=== PATIENT | male | born 1960 | race Caucasian/White ===

== ENCOUNTER → 2016-12-02 | Outpatient (REF) | payer OTHER | LOC: M SFHCPLAZ 11:19 | PROVIDERS: ATTEND Family Medicine | DX: E78.2 Mixed hyperlipidemia (principal); Z12.5 Encounter for screening for malignant neoplasm of prostate; E55.9 Vitamin D deficiency, unspecified ==

== ENCOUNTER → 2016-12-08 | Outpatient (CLI) | payer OTHER ==
--- NOTE | 2016-12-08 17:05 | REP ---
Clinical: Lower back pain. Technique: AP, lateral, bilateral oblique and coned-down views of the lumbosacral spine. Findings: Advanced multilevel degenerative changes include osteophytosis, endplate sclerosis/irregularity with disc space narrowing and hypertrophic facet changes. Subtle chronic compression deformity at L1 is suggested. No acute fracture / compression injury or subluxation identified. Impression: Advanced multilevel degenerative changes. If the patient remains symptomatic consider MRI for further investigation. Signed by John Robledo MD 12/08/2016 04:57 P
== END ==
LOC: M WUC 16:36
PROVIDERS: ATTEND Family Medicine
DX: M51.36 Other intervertebral disc degeneration, lumbar region (principal)

== ENCOUNTER → 2017-05-27 | Outpatient (CLI) | payer OTHER ==
[~2017-05-27] MED LIST: ACET-683 PO; ASPI81TA85 PO; ASTELIN; CALCTAB75 PO; DRIS50002 PO; FENO145T PO; FLON1SPR; HYDR25TAB PO; LISI-538 PO; PRAV40TA2 PO; QVAR1AER2 IN; SALI0.6523; VENTAER IN; VITA500T PO
[2017-05-27 13:31] LABS: ALBUMIN 4.1 GM/DL (3.2-5.2); ALBUMIN/GLOBULIN RATIO 1.41 (1.00-1.93); ALKALINE PHOSPHATASE 56 U/L (45-117); ALT/SGPT 17 U/L (12-78); ANION GAP 7 MEQ/L (8-16); AST/SGOT 20 U/L (15-37); BILIRUBIN,TOTAL 0.4 MG/DL (0.2-1.0); BLOOD UREA NITROGEN 24 MG/DL (7-18); CALCIUM LEVEL 9.6 MG/DL (8.5-10.1); CARBON DIOXIDE LEVEL 28 MEQ/L (21-32); CHLORIDE LEVEL 104 MEQ/L (98-107); CHOLESTEROL LEVEL 153 MG/DL (<200); CREATININE FOR GFR 1.06 MG/DL (0.70-1.30); GLOMERULAR FILTRATION RATE > 60.0 (>56); GLUCOSE, FASTING 94 MG/DL (70-105); SODIUM LEVEL 139 MEQ/L (136-145); TRIGLYCERIDES LEVEL 142 MG/DL (<150)
== END ==
LOC: M WUC 09:38
PROVIDERS: ATTEND Family Medicine
DX: E78.2 Mixed hyperlipidemia (principal); Z12.5 Encounter for screening for malignant neoplasm of prostate; E55.9 Vitamin D deficiency, unspecified

== ENCOUNTER → 2017-07-06 | Outpatient (CLI) | payer OTHER ==
--- NOTE | 2017-07-06 10:13 | REP ---
MAXILLOFACIAL CT WITHOUT CONTRAST: HISTORY: Chronic maxillary sinusitis. COMPARISON: 04/04/2008 A left [place] cell is present. Mild mucosal thickening is present in the left ethmoid sinus. Minimal mucosal thickening is present in the maxillary and right ethmoid sinuses. Retention cysts or polyps are present in the maxillary sinuses. The remaining sinuses are clear. Mucosal thickening involves the right osteomeatal unit. The left osteomeatal unit is patent. The middle and inferior nasal turbinates are partially paradoxical. 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 There is minimal deviation of the nasal septum to the left superiorly and to the right inferiorly. The cribriform plate, medial aragon of the orbits and optic canals are intact. The carotid canals form a segment of the posterolateral aragon of the sphenoid sinus. IMPRESSION: 1. Sinus mucosal thickening as described above. 2. Bilateral maxillary sinus retention cysts or polyps. Signed by Boom Benitez MD 07/06/2017 10:28 A
== END ==
LOC: M RAD 07:14
PROVIDERS: ATTEND Specialist
DX: J32.0 Chronic maxillary sinusitis (principal); J34.1 Cyst and mucocele of nose and nasal sinus

== ENCOUNTER 2017-09-19 07:46 | Day surgery (SDC) | payer OTHER ==
[~2017-09-19] VITALS: Ht 172.7 cm; Wt 93.4 kg
[~2017-09-19 07:46] MED LIST changes: -ACET-683 PO; -HYDR25TAB PO; -PRAV40TA2 PO
[2017-09-19] MEDS ORDERED: PRAV40TA2 PO (08:22)
[2017-09-19] MEDS ORDERED: HYDR25TAB PO (08:22)
[2017-09-19] MEDS ORDERED: ACET-683 PO (08:27)
[2017-09-19 08:45] LABS: ANION GAP 7 MEQ/L (8-16); BLOOD UREA NITROGEN 23 MG/DL (7-18); CALCIUM LEVEL 9.1 MG/DL (8.5-10.1); CARBON DIOXIDE LEVEL 32 MEQ/L (21-32); CHLORIDE LEVEL 101 MEQ/L (98-107); CREATININE FOR GFR 1.08 MG/DL (0.70-1.30); GLOMERULAR FILTRATION RATE > 60.0 (>56); GLUCOSE, FASTING 94 MG/DL (70-105); POTASSIUM SERUM 3.8 MEQ/L (3.5-5.1); SODIUM LEVEL 140 MEQ/L (136-145)
[2017-09-19] MEDS ORDERED: LR 1,000 ML IV SCH ×2 (08:45→13:00)
--- NOTE | 2017-09-19 08:46 | ECGEPIP ---
Stationary ECG Study [facility] Test Date: 2017-09-19 Pat Name: WENCESLAO BUTTS Department: Room: - Gender: M Bradder: : 1960 Requested By: ARIELLE MARCUS Order Number: [id number] Reading MD: Moy Forte Measurements Intervals [place] Rate: 67 P: 44 IA: 174 QRS: -26 QRSD: 122 T: -7 QT: 420 QTc: 446 Interpretive Statements Normal sinus rhythm Left axis deviation - Could not rule out prior IWMI Slow precordial R-wave progression with persistent S waves V5 and V6; body habitus versus pulmonary disease. No prior tracing. Clinical correlation advised Electronically Signed On 09-19-2017 8:46:12 EDT by Moy Forte
[2017-09-19] MEDS ORDERED: ROCURONIUM BROMIDE 50 MG/5 ML VIAL/SYRINGE As Ordered ONE (09:33)
[2017-09-19] MEDS ORDERED: PROPOFOL 200 MG/20 ML VIAL As Ordered ONE (09:33)
[2017-09-19] MEDS ORDERED: fentaNYL 250 MCG/5 ML INJECTION (J3010) As Ordered ONE (09:33)
[2017-09-19] MEDS ORDERED: dexameTHASONE 4 MG/ML 1ML VIAL (J1100) As Ordered ONE (09:33)
[2017-09-19] MEDS ORDERED: LIDOCAINE 2% INJ 100 MG/5 ML SDV (FOR ANES.) As Ordered ONE (09:33)
[2017-09-19] MEDS ORDERED: MIDAZOLAM INJ 2 MG/2 ML VIAL (J2250) As Ordered ONE (09:34)
[2017-09-19] MEDS ORDERED: EPINEPHrine INJ 1 MG/ML 1ML AMP As Ordered ONE ×2 (10:15→11:36)
[2017-09-19] MEDS ORDERED: LIDOCAINE W/EPINEPHRINE 1% 20ML VIAL As Ordered ONE (10:15)
[2017-09-19] MEDS ORDERED: OXYMETAZOLINE NASAL SPRAY (AFRIN) As Ordered ONE (10:15)
[2017-09-19] MEDS ORDERED: METHYLENE BLUE 0.5% (5MG/ML) 10 ML AMP (PROVAYBLUE)(Q9968 PER 1MG) As Ordered ONE (10:19)
[2017-09-19] MEDS ORDERED: SEVOFLURANE INHAL SOLN 250 ML BTL As Ordered ONE (10:21)
[2017-09-19] MEDS ORDERED: GLYCOPYRROLATE INJ 0.2 MG/ML 2 ML VIAL As Ordered ONE (11:32)
[2017-09-19] MEDS ORDERED: NEOSTIGMINE 10 MG/10 ML VIAL (J2710) As Ordered ONE (11:32)
[2017-09-19] MEDS ORDERED: ePHEDrine SULFATE 25 MG/5 ML(5MG/ML) SYRINGE As Ordered ONE (11:48)
[2017-09-19] MEDS ORDERED: ALBUTEROL SULFATE 2.5 MG/0.5 ML INH NEB SOLN As Ordered ONE (12:44)
[2017-09-19] MEDS ORDERED: ALBUTEROL SULFATE 2.5 MG/0.5 ML INH NEB SOLN INH ONE (13:00)
[2017-09-19] MEDS ORDERED: fentaNYL 100 MCG/2 ML INJECTION (J3010) IV PRN (13:00)
[2017-09-19] MEDS ORDERED: ONDANSETRON 4MG/2ML VIAL (J2405) IV PRN (13:00)
[2017-09-19] MEDS: PERCOCET 5MG/325MG TAB PO PRN ×2 (13:05→14:08)
[2017-09-19 15:00] VITALS: BP 138/65
--- NOTE | 2017-09-21 08:22 | RO ---
DATE OF PROCEDURE: 09/19/2017 PREPROCEDURE DIAGNOSIS: Deviated septum. POSTPROCEDURE DIAGNOSIS: Deviated septum. PROCEDURE: Septoplasty and bilateral total endoscopic ethmoidectomy and maxillary antrostomy. SURGEON: Dr. Michael Roberts. 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 INDICATION: 57-year-old who presents with a lifelong history of nasal obstruction, congestion, and recurrent sinusitis. CT scanning demonstrated bilateral large andrez bullosa of the middle turbinates, which were obstructing sinus ostia. In addition, he had a significant septal deviation to the right nasal cavity. DESCRIPTION OF PROCEDURE: Satisfactory general endotracheal anesthesia administered pharyngeal pathway, his nose was prepared for surgery by placing cotton-soaked pledgets with Afrin solution to the nasal cavity bilaterally, 1% Xylocaine with 1:100,000 epinephrine used to inject the nasal septum. A [place] incision was made on the left side of the nose. A mucoperichondrial flap and envelope was created on the left side of the nasal septum and carried down to the junction of the bony and cartilaginous septum. This was then with an elevator, and an envelope was then created on the right side of the septum. A [place] scissors was used to make a cut high in the perpendicular plate in the midportion of the vomer, and a central segment of the bony septum was resected. Next, with the round knife on the [place] elevator, a strip of cartilage was resected from the floor of the nose, mobilizing the quadrilateral cartilage and creating a swinging door. Then, a central segment of cartilaginous septum was resected, preserving a 1 cm dorsal and caudal strut. Double-action rongeur was used to take down deflected portions of the perpendicular plate, as well. Finally, the maxillary crest spur was taken down after elevating mucoperiosteum off both sides of it with a chisel. A segment of the resected cartilage was morselized and placed back into the septal envelope. The incision was closed using an interrupted #5-0 chromic suture. Then, a #4-0 plain suture was placed in a [id number] fashion through the two leaves of mucoperichondrium to appose them. Completing the septum surgery, endoscopic surgery was begun after adrenaline pledgets were placed in the middle meatus for 5 minutes. With the 0 degree telescope and the microdebrider as the primary instrument, the left side was operated on first. The middle turbinate, which was pneumatized was injected with the lidocaine as well as the lateral nasal wall. Using the microdebrider, the lateral lamella of the pneumatized middle turbinate was resected away giving adequate exposure of the middle meatus. The uncinate process was shaved down. Then the ethmoidal bulla, although quite small was entered and resected. The grand lamella was entered posteriorly and the posterior ethmoid cells entered. There was some polypoid-like tissue encountered during the dissection. Working then posterior to enter the lamella, bone removed enlarging the ethmoid section following the lamina papyracea. Superiorly around the skull base, the remnant uncinate process was opened, the superior ethmoid cell was opened. Finally, the natural maxillary sinus ostia was identified. It was cannulated and it was opened widely using a combination of [place] biting and upbiting forceps using the microdebrider to round it out. Adrenaline pledgets were placed in this side and an identical procedure including resection of the pneumatized middle turbinate was done on the right side. Completing this surgery, adrenaline pledgets were placed. When these were removed, there was no significant bleeding. Nasal floor packing were placed in each side of the nose, the pharyngeal packing removed and the throat suctioned. The patient was awakened, extubate and sent to the recovery room in satisfactory condition. He will be discharged home on Percocet for pain, doxycycline 100 mg twice a day. We will see him back in the office in 2 days.
== END 2017-09-19 15:48 | disposition home or self-care (01) ==
LOC: M SDC 07:46
PROVIDERS: ATTEND Specialist
DX: J34.2 Deviated nasal septum (principal); J32.9 Chronic sinusitis, unspecified; I10 Essential (primary) hypertension; E78.00 Pure hypercholesterolemia, unspecified; R01.1 Cardiac murmur, unspecified; J45.909 Unspecified asthma, uncomplicated; K44.9 Diaphragmatic hernia without obstruction or gangrene; K21.9 Gastro-esophageal reflux disease without esophagitis; E78.5 Hyperlipidemia, unspecified; M12.9 Arthropathy, unspecified; Z88.0 Allergy status to penicillin; Z88.5 Allergy status to narcotic agent; Z88.8 Allergy status to other drugs, medicaments and biological substances; Z91.048 Other nonmedicinal substance allergy status; Z91.040 Latex allergy status; Z91.012 Allergy to eggs; Z79.899 Other long term (current) drug therapy
CPT/HCPCS: 30520; 31255; 31256; 36415; 80048; 88300; 88304; 88305; 93005; J1100; J2250; J2710; J3010; Q9968

== ENCOUNTER → 2018-03-16 | Outpatient (CLI) | payer OTHER | LOC: M WUC 14:52 | DX: S90.121A Contusion of right lesser toe(s) without damage to nail, initial encounter (principal); W18.30XA Fall on same level, unspecified, initial encounter; Y92.009 Unspecified place in unspecified non-institutional (private) residence as the place of occurrence of the external cause ==

== ENCOUNTER → 2018-05-12 | Outpatient (CLI) | payer OTHER ==
[2018-05-12 19:05] LABS: HEMATOCRIT 39.2 % (42.0-52.0); HEMOGLOBIN 12.6 g/dl (13.5-17.5); MEAN CORPUSCULAR HEMOGLOBIN 26.6 pg (27.0-33.0); MEAN CORPUSCULAR HGB CONC 32.1 g/dl (32.0-36.5); MEAN CORPUSCULAR VOLUME 82.9 fl (80.0-96.0); PLATELET COUNT, AUTOMATED 318 10^3/uL (150-450); RED BLOOD COUNT 4.73 10^6/uL (4.30-6.10); RED CELL DISTRIBUTION WIDTH 14.9 % (11.5-14.5); WHITE BLOOD COUNT 5.7 10^3/uL (4.0-10.0)
[2018-05-12 19:17] LABS: ALBUMIN 4.1 GM/DL (3.2-5.2); ALBUMIN/GLOBULIN RATIO 1.52 (1.00-1.93); ALKALINE PHOSPHATASE 53 U/L (45-117); ALT/SGPT 17 U/L (12-78); ANION GAP 7 MEQ/L (8-16); AST/SGOT 20 U/L (7-37); BILIRUBIN,TOTAL 0.4 MG/DL (0.2-1.0); BLOOD UREA NITROGEN 26 MG/DL (7-18); CALCIUM LEVEL 9.5 MG/DL (8.5-10.1); CARBON DIOXIDE LEVEL 32 MEQ/L (21-32); CHLORIDE LEVEL 104 MEQ/L (98-107); CHOLESTEROL LEVEL 146 MG/DL (<200); CREATININE FOR GFR 1.18 MG/DL (0.70-1.30); GLOMERULAR FILTRATION RATE > 60.0 (>56); GLUCOSE, FASTING 87 MG/DL (70-100); HDL CHOLESTEROL 50 MG/DL (>40); LDL CHOLESTEROL 67.2 MG/DL (<100); NON-HDL-C 96 MG/DL; POTASSIUM SERUM 4.2 MEQ/L (3.5-5.1); PSA SCREENING 0.22 NG/ML (< 4.0); SODIUM LEVEL 143 MEQ/L (136-145); TOTAL PROTEIN 6.8 GM/DL (6.4-8.2); TRIGLYCERIDES LEVEL 144 MG/DL (<150)
[2018-05-12 19:19] LABS: ESTIMATED AVERAGE GLUCOSE 123 MG/DL (60-110); HEMOGLOBIN A1c 5.9 %
[2018-05-14 10:10] LABS: TOTAL 25(OH) VITAMIN D 25.2 NG/ML (30.0-100.0)
== END ==
LOC: M WUC 09:25
DX: J45.998 Other asthma (principal); I10 Essential (primary) hypertension; R73.03 Prediabetes; E78.2 Mixed hyperlipidemia; Z12.5 Encounter for screening for malignant neoplasm of prostate; E55.9 Vitamin D deficiency, unspecified
CPT/HCPCS: 80053

== ENCOUNTER → 2018-10-27 | Outpatient (CLI) | payer OTHER ==
[2018-10-27 11:14] LABS: HEMATOCRIT 40.3 % (42.0-52.0); MEAN CORPUSCULAR HEMOGLOBIN 26.5 pg (27.0-33.0); MEAN CORPUSCULAR HGB CONC 32.3 g/dl (32.0-36.5); MEAN CORPUSCULAR VOLUME 82.1 fl (80.0-96.0); PLATELET COUNT, AUTOMATED 317 10^3/uL (150-450); RED BLOOD COUNT 4.91 10^6/uL (4.30-6.10); RED CELL DISTRIBUTION WIDTH 13.8 % (11.5-14.5); WHITE BLOOD COUNT 8.6 10^3/uL (4.0-10.0)
[2018-10-27 11:30] LABS: ESTIMATED AVERAGE GLUCOSE 128 MG/DL (60-110); HEMOGLOBIN A1c 6.1 %
[2018-10-27 11:42] LABS: ALBUMIN/GLOBULIN RATIO 1.54 (1.00-1.93); ALKALINE PHOSPHATASE 47 U/L (45-117); ALT/SGPT 13 U/L (12-78); ANION GAP 10 MEQ/L (8-16); AST/SGOT 12 U/L (7-37); BILIRUBIN,TOTAL 0.5 MG/DL (0.2-1.0); BLOOD UREA NITROGEN 30 MG/DL (7-18); CALCIUM LEVEL 9.4 MG/DL (8.5-10.1); CARBON DIOXIDE LEVEL 27 MEQ/L (21-32); CHLORIDE LEVEL 104 MEQ/L (98-107); CHOLESTEROL LEVEL 149 MG/DL (<200); CHOLESTEROL RISK RATIO 2.921 (<5); CREATININE FOR GFR 1.05 MG/DL (0.70-1.30); GLOMERULAR FILTRATION RATE > 60.0 (>56); GLUCOSE, FASTING 87 MG/DL (70-100); HDL CHOLESTEROL 51 MG/DL (>40); LDL CHOLESTEROL 71 MG/DL (<100); NON-HDL-C 98 MG/DL; POTASSIUM SERUM 4.1 MEQ/L (3.5-5.1); PSA SCREENING 0.2 NG/ML (< 4.0); SODIUM LEVEL 141 MEQ/L (136-145); TOTAL PROTEIN 6.6 GM/DL (6.4-8.2); TRIGLYCERIDES LEVEL 133 MG/DL (<150)
== END ==
LOC: M WUC 09:04
DX: Z12.5 Encounter for screening for malignant neoplasm of prostate (principal); J45.998 Other asthma; I10 Essential (primary) hypertension; R73.03 Prediabetes; R78.2 Finding of cocaine in blood; E55.9 Vitamin D deficiency, unspecified
CPT/HCPCS: 80053

== ENCOUNTER → 2019-02-25 | Outpatient (CLI) | payer OTHER ==
[~2019-02-25] MED LIST changes: +ACET-683 PO; -DRIS50002 PO; +DRIS50003 PO; -FENO145T PO; +FENO145T13 PO; +HYDR25TAB PO; +PRAV40TA2 PO; -QVAR1AER2 IN; +QVAR80AE10 IN; -SALI0.6523; +SALI0.6528
--- NOTE | 2019-02-25 15:07 | REP ---
Clinical: Pain with recent trauma. Technique: Internal rotation, external rotation, and Y view of the left shoulder. Findings: Generalized age-related changes are appreciated including subtle cortical irregularity at the acromioclavicular joint. Glenohumeral joint is intact and relatively normal. No acute fracture or dislocation. Subacromial space measures 9 mm on external rotation view. No periarticular calcifications or loose bodies are identified. Impression: Essentially normal age appropriate left shoulder radiographs. No acute fracture or dislocation. Electronically Signed by John Robledo MD 02/25/2019 02:58 P
== END ==
LOC: M RAD 14:38
PROVIDERS: ATTEND Physician Assistant
DX: S46.912A Strain of unspecified muscle, fascia and tendon at shoulder and upper arm level, left arm, initial encounter (principal); X58.XXXA Exposure to other specified factors, initial encounter; Y92.89 Other specified places as the place of occurrence of the external cause

== ENCOUNTER → 2019-05-03 | Outpatient (REF) | payer OTHER ==
[2019-05-03 13:55] LABS: HEMATOCRIT 43.5 % (42.0-52.0); HEMOGLOBIN 14.3 g/dl (13.5-17.5); MEAN CORPUSCULAR HEMOGLOBIN 26.9 pg (27.0-33.0); MEAN CORPUSCULAR HGB CONC 32.9 g/dl (32.0-36.5); MEAN CORPUSCULAR VOLUME 81.8 fl (80.0-96.0); PLATELET COUNT, AUTOMATED 332 10^3/uL (150-450); RED BLOOD COUNT 5.32 10^6/uL (4.30-6.10); WHITE BLOOD COUNT 6.3 10^3/uL (4.0-10.0)
[2019-05-03 14:11] LABS: ALBUMIN 4.3 GM/DL (3.2-5.2); ALT/SGPT 17 U/L (12-78); BILIRUBIN,TOTAL 0.5 MG/DL (0.2-1.0); BLOOD UREA NITROGEN 27 MG/DL (7-18); CALCIUM LEVEL 10.1 MG/DL (8.5-10.1); CARBON DIOXIDE LEVEL 27 MEQ/L (21-32); CHLORIDE LEVEL 103 MEQ/L (98-107); CHOLESTEROL LEVEL 169 MG/DL (<200); CREATININE FOR GFR 1.06 MG/DL (0.70-1.30); GLOMERULAR FILTRATION RATE > 60.0 (>56); GLUCOSE, FASTING 78 MG/DL (70-100); HDL CHOLESTEROL 52 MG/DL (>40); LDL CHOLESTEROL 82 MG/DL (<100); NON-HDL-C 117 MG/DL; POTASSIUM SERUM 4.3 MEQ/L (3.5-5.1); SODIUM LEVEL 140 MEQ/L (136-145); TOTAL PROTEIN 7.5 GM/DL (6.4-8.2); TRIGLYCERIDES LEVEL 173 MG/DL (<150)
[2019-05-03 14:17] LABS: TOTAL 25(OH) VITAMIN D 31.4 NG/ML (30.0-100.0)
[2019-05-03 14:41] LABS: HEMOGLOBIN A1c 6.2 %
== END ==
LOC: M SFHCPLAZ 10:46
PROVIDERS: ATTEND Family Medicine
DX: J45.998 Other asthma (principal); I10 Essential (primary) hypertension; R73.03 Prediabetes; E78.2 Mixed hyperlipidemia; Z12.5 Encounter for screening for malignant neoplasm of prostate; E55.9 Vitamin D deficiency, unspecified
CPT/HCPCS: 36415; 80053; 80061; 82306; 83036; 85027; G0103

== ENCOUNTER → 2019-07-05 | Outpatient (REF) | payer OTHER ==
[2019-07-05 19:36] LABS: FREE T4 0.89 NG/DL (0.76-1.46); THYROID STIMULATING HORMONE 2.5 uIU/ML (0.358-3.740)
== END ==
LOC: M SFHCADAM 16:12
PROVIDERS: ATTEND Family Medicine
DX: G20 Parkinson's disease (principal)

== ENCOUNTER → 2019-08-03 | Outpatient (CLI) | payer OTHER ==
--- NOTE | 2019-08-03 10:22 | REP ---
Clinical: Trauma. Technique: AP, lateral, bilateral oblique views right fifth digit . Findings: The osseous structures and joint spaces are intact and normal. There is no evidence for acute fracture or dislocation. Surrounding soft tissues are unremarkable. No subcutaneous emphysema or radiodense foreign body. Impression: No acute fracture or dislocation. Electronically Signed by John Robledo MD 08/03/2019 10:14 A
== END ==
LOC: M WUC 09:50
PROVIDERS: ATTEND Physician Assistant
DX: S60.051A Contusion of right little finger without damage to nail, initial encounter (principal); X58.XXXA Exposure to other specified factors, initial encounter; Y92.9 Unspecified place or not applicable

== ENCOUNTER → 2019-09-24 | Outpatient (CLI) | payer OTHER ==
[~2019-09-24] MED LIST changes: +ALBU83IN INH; +ALLE180T33 PO; +CALC600T7 PO; +GABA-1171 PO; +IBUP200C25 PO; +LIDO5CRE6 EX; +MULTCAP PO; +SYMB16INH INH; +VENTAER INH
--- NOTE | 2019-09-24 15:10 | REP ---
Clinical: Pain. Strain . Comparison: 10/20/2009 . Technique: PA and lateral. Findings: The mediastinum and cardiac silhouette are normal. The lung morel are clear and without acute consolidation, effusion, or pneumothorax. The skeletal structures are intact and normal. Impression: 1. No acute cardiopulmonary process. Electronically Signed by John Robledo MD 09/24/2019 03:01 P
[2019-09-24 15:14] LABS: BLOOD UREA NITROGEN 28 MG/DL (7-18); CALCIUM LEVEL 9.8 MG/DL (8.5-10.1); CARBON DIOXIDE LEVEL 30 MEQ/L (21-32); CHLORIDE LEVEL 105 MEQ/L (98-107); CREATININE FOR GFR 0.95 MG/DL (0.70-1.30); GLOMERULAR FILTRATION RATE > 60.0 (>56); GLUCOSE, FASTING 95 MG/DL (70-100); POTASSIUM SERUM 3.9 MEQ/L (3.5-5.1); SODIUM LEVEL 140 MEQ/L (136-145)
--- NOTE | 2019-09-24 21:57 | ECGEPIP ---
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
== END ==
LOC: M LAB 14:20
PROVIDERS: ATTEND Orthopaedic Surgery
DX: Z01.810 Encounter for preprocedural cardiovascular examination (principal); S46.812D Strain of other muscles, fascia and tendons at shoulder and upper arm level, left arm, subsequent encounter; X58.XXXD Exposure to other specified factors, subsequent encounter; R94.31 Abnormal electrocardiogram [ECG] [EKG]

== ENCOUNTER 2019-10-29 05:47 | Day surgery (SDC) | payer OTHER ==
[~2019-10-29] VITALS: Ht 167.6 cm; Wt 100.6 kg
[~2019-10-29 05:47] MED LIST changes: +DOXY100C PO
[2019-10-29] MEDS ORDERED: dexameTHASONE 10 MG/1 ML VIAL PRES.FREE (J1100) ONE (05:48)
[2019-10-29] MEDS ORDERED: EPINEPHrine INJ 1 MG/ML 1ML AMP ONE (05:48)
[2019-10-29] MEDS ORDERED: ROPIvacaine 0.5% 30 ML INJECTION (J2795 PER 1MG) ONE (05:48)
[2019-10-29] MEDS ORDERED: LR 1,000 ML IV ONE (06:00)
[2019-10-29] MEDS ORDERED: GEMF600T5 PO (06:27)
[2019-10-29] MEDS ORDERED: ATOR1TAB21 PO (06:27)
[2019-10-29] MEDS ORDERED: LIDOCAINE 1% SDV INJ 30 ML VIAL As Ordered ONE (06:56)
[2019-10-29] MEDS ORDERED: EPINEPHrine 1MG/ML INJ 30ML MD-VIAL As Ordered ONE (06:56)
[2019-10-29] MEDS ORDERED: fentaNYL 250 MCG/5 ML INJECTION (J3010) As Ordered ONE (07:07)
[2019-10-29] MEDS ORDERED: dexameTHASONE 4 MG/ML 1ML VIAL (J1100) As Ordered ONE (07:08)
[2019-10-29] MEDS ORDERED: ONDANSETRON 4MG/2ML VIAL (J2405) As Ordered ONE (07:08)
[2019-10-29] MEDS ORDERED: KETOROLAC 60 MG/2 ML VIAL (J1885) As Ordered ONE (07:08)
[2019-10-29] MEDS ORDERED: LIDOCAINE 2% INJ 100 MG/5 ML SDV (FOR ANES.) As Ordered ONE (07:08)
[2019-10-29] MEDS ORDERED: PROPOFOL 200 MG/20 ML VIAL As Ordered ONE ×2 (07:08→09:39)
[2019-10-29] MEDS ORDERED: MIDAZOLAM INJ 2 MG/2 ML VIAL (J2250) As Ordered ONE (07:08)
[2019-10-29] MEDS ORDERED: ROCURONIUM BROMIDE 50 MG/5 ML VIAL As Ordered ONE (07:08)
[2019-10-29] MEDS ORDERED: ceFAZolin SOD 2 GM in IV 1 EA IV ONE (07:30)
[2019-10-29] MEDS ORDERED: MIDAZOLAM INJ 2 MG/2 ML VIAL (J2250) IV ONE (07:45)
[2019-10-29] MEDS ORDERED: fentaNYL 100 MCG/2 ML INJECTION (J3010) IV ONE (07:45)
[2019-10-29] MEDS ORDERED: ACETAMINOPHEN 1000MG 100ML IV BTL (OFIRMEV) (J0131 PER 10MG) As Ordered ONE (07:58)
[2019-10-29] MEDS ORDERED: PHENYLephrine HCL 500 MCG/5 ML (100MCG/ML) SYRINGE (J2370) As Ordered ONE (08:06)
[2019-10-29] MEDS ORDERED: ePHEDrine SULFATE 25 MG/5 ML(5MG/ML) SYRINGE As Ordered ONE ×2 (08:06→08:28)
[2019-10-29] MEDS ORDERED: SUGAMMADEX SODIUM 500 MG/5 ML VIAL (BRIDION) As Ordered ONE (08:19)
[2019-10-29] MEDS ORDERED: LR 1,000 ML IV SCH (10:15)
[2019-10-29] MEDS ORDERED: ONDANSETRON 4MG/2ML VIAL (J2405) IV PRN (10:15)
[2019-10-29] MEDS ORDERED: fentaNYL 100 MCG/2 ML INJECTION (J3010) IV PRN (10:15)
[2019-10-29] MEDS ORDERED: oxyCODONE 5MG TAB PO PRN (10:15)
--- NOTE | 2019-10-29 10:40 | RO ---
DATE OF PROCEDURE: 10/29/2019 PREOPERATIVE DIAGNOSES: 1. Left shoulder posterior labral tear. 2. Left shoulder impingement. 3. Left shoulder AC joint arthritis. POSTOPERATIVE DIAGNOSES: 1. Left shoulder posterior labral tear. 2. Left shoulder glenohumeral chondromalacia. 3. Left shoulder anterior and superior labral tear. 4. Left shoulder impingement. 5. Left shoulder acromioclavicular joint arthritis. 6. Left shoulder capsulitis. PROCEDURES: 1. Left shoulder manipulation under anesthesia. 2. Left shoulder arthroscopic posterior labral repair. 3. Left shoulder arthroscopic superior and anterior labral debridement. 4. Left shoulder arthroscopic chondroplasty of the humeral head and glenoid. 5. Left shoulder arthroscopic subacromial decompression including acromioplasty. 6. Left shoulder arthroscopic distal clavicle excision. IMPLANTS: Arthrex 2.9 mm PushLock anchors times three with labral tape, closure nylon. PROCEDURE: Patient identified in preoperative holding area and the left shoulder was marked by myself. He had an interscalene nerve block by anesthesia. He was brought to the operating room, placed supine on a well-padded OR table. General anesthesia was induced. He received appropriate IV antibiotics within 1 hour of incision. Preliminary time-out performed per hospital protocol. Exam under anesthesia revealed 150 degrees of passive forward flexion, 80 of external rotation with arm at his side, grade 2 plus posterior load and shift, grade 1 anterior load and shift. I then performed a gentle manipulation under anesthesia applying steady yet gentle passive forward flexion. One small audible pop was heard and then also felt consistent with a partial release. He now had 170 degrees of forward flexion. The patient was then placed into the right side down lateral decubitus position with an axillary roll and all bony prominences were well padded. Bilateral Venodyne boots for deep vein thrombosis (DVT) prophylaxis. The left arm was placed into the Arthrex star sleeve lateral decubitus traction metz with 10 pounds of traction. The left shoulder was then prepped and draped in normal sterile fashion with Chloraprep. Prior to incision, a time-out was performed per hospital protocol. Lamonte Baez was present the entire procedure and participated in all essential portions of the procedure. This included patient positioning and draping, holding arthroscope, retrieving sutures arthroscopically, assisting with loading sutures through the PushLock anchors, providing axial traction and manipulation of the shoulder to assist with drilling and suture passage and performed the wound closure, applying the dressing and sling. Standard posterior viewing portal was made with 11-blade, 30 degrees arthroscope was introduced into the joint. Diagnostic arthroscopy revealed grade 1 to 2 chondromalacia in the glenoid, primarily grade 1 in the humeral head, one area of grade 2 posteriorly. There was a larger bare area than typical in the humeral head that almost appeared to be a shallow Hill-Sachs. Evaluation will labrum revealed traumatic tearing of the posterior labrum. There was a type 1 superior labral tear. There was some fraying extending up into the long head of the biceps. There were no unstable anterior labral tears. Negative drive-through sign. The articular surface of the rotator cuff was intact. The subscapularis was intact and there was no lift off doing the posterior lever push maneuver. An anterior working portal was established in the rotator interval just off the subscapularis. On probing the posterior labrum there was an unstable tear. There was actually some exposed raw bone consistent with a traumatic injury. The biceps labral anchor was probed, found to be stable. The shaver was used to perform a debridement of the anterior and superior labrum. A chondroplasty of humeral head and glenoid with the shaver. I then placed a second cannula high in the rotator interval just anterior to the biceps. I then created an accessory posterolateral portal to give a better angle for drilling into the posterior glenoid and a third cannula placed. At this point, it is clear the posterior labral repair was indicated. A hooked radiofrequency cautery was used to develop the plane between labrum and glenoid. Labral elevators were then used to the anterior portal to subperiosteally dissect and mobilize the tissue. I then used a suture lasso to shuttle nitinol wire and then labral tape through the posterior inferior labrum and capsule. This was loaded through 2.9 mm PushLock anchor. The appropriate drill was used to create a socket in the post inferior glenoid, anchor was docked and then inserted by hand, then malleted with excellent fixation. Those same steps were repeated with suture lasso used to shuttle nitinol wire and labral tape through capsule labrum in an inferior to superior direction resulting in a capsular shift. A total of three PushLock anchors were placed with excellent fixation. The repair was then probed and found to be secure. This nicely restored the posterior bumper which had been lost from his traumatic injury. The arthroscope was placed in the subacromial space where there was moderate bursitis. Lateral working portal was created and a bursectomy performed with shaver and cautery. There was low grade fraying of the bursal surface of the supraspinatus, no indication for debridement. The acromion was then skeletonize the CA ligament partially released. There was a moderate size subacromial spur so an acromioplasty was performed with the bur turning this into a type 1 morphology. Attention was then turned to the distal clavicle where there was bone on bone contact. A bur was used through the anterior portal to perform a distal clavicle excision and removing approximately 5-6 mm of bone. The arthroscope was intermittently placed through the anterior portal to ensure no posterior-superior bone remained. Shoulder was irrigated and drained. Portals closed with nylon suture. Bulky sterile dressing applied. The patient was then placed into his ARC 2.0 sling in the gunslinger position. At the time of this dictation, the patient was about to be extubated.
[2019-10-29 13:10] VITALS: BP 120/76
== END 2019-10-29 14:15 | disposition home or self-care (01) ==
LOC: M SDC 05:47
PROVIDERS: ATTEND Orthopaedic Surgery
DX: M94.212 Chondromalacia, left shoulder (principal); M75.02 Adhesive capsulitis of left shoulder; M19.012 Primary osteoarthritis, left shoulder; M75.42 Impingement syndrome of left shoulder; I10 Essential (primary) hypertension; E78.5 Hyperlipidemia, unspecified; I73.9 Peripheral vascular disease, unspecified; K21.9 Gastro-esophageal reflux disease without esophagitis; K44.9 Diaphragmatic hernia without obstruction or gangrene; J45.909 Unspecified asthma, uncomplicated; Z79.82 Long term (current) use of aspirin; Z79.899 Other long term (current) drug therapy; Z91.040 Latex allergy status; Z88.0 Allergy status to penicillin; Z88.5 Allergy status to narcotic agent; Z88.8 Allergy status to other drugs, medicaments and biological substances
CPT/HCPCS: 29807; 29823; 29824; 29826; 64415; C1713; J0131; J0690; J1100; J1885; J2250; J2370; J2405; J2795; J3010

== ENCOUNTER → 2019-12-02 | Outpatient (CLI) | payer OTHER ==
[~2019-12-02] MED LIST changes: +ATOR1TAB21 PO; +GEMF600T5 PO
--- NOTE | 2019-12-02 14:02 | REP ---
Digital diagnostic bilateral mammography with CAD and focused left breast sonography: History: Palpable lump 3 o'clock left breast. Present since February 2019. Becoming tender. Mammographic findings: A skin marker is affixed to the skin of the left breast projecting in the upper outer quadrant. Routine views of both breasts are obtained. Breast parenchyma is normal and fat replaced mammographically. No mass is seen at the site of the palpable lump or elsewhere. No architectural distortion or microcalcification is seen. No worrisome skin change is seen. Sonographic findings: The left breast is scanned in the area of the palpable lump at 3 o'clock, scanning is performed from 2 o'clock to 4 o'clock. Normal subcutaneous tissue is seen. No cyst or mass is observed. No acoustic shadowing is seen. Impression: BIRADS 1: BI-RADS/ACR category 1 mammogram. Negative Mammogram. BIRADS category 1 negative mammographic and sonographic findings. Clinical followup is recommended. This mammogram was interpreted with the aid of an FDA-approved computer-aided detection system. The patient states he had a clinical breast exam in November 2019. The patient letter being requested is male patient letter M2. Electronically Signed by Jhonathan Klein MD 12/02/2019 02:56 P
== END ==
LOC: M RAD 09:55
PROVIDERS: ATTEND Family Medicine
DX: N63.20 Unspecified lump in the left breast, unspecified quadrant (principal)

== ENCOUNTER → 2020-02-20 | Outpatient (CLI) | payer OTHER ==
[~2020-02-20] MED LIST changes: -FENO145T13 PO; +FENO145T7 PO
[2020-02-20 09:25] LABS: HEMATOCRIT 40.7 % (42.0-52.0); HEMOGLOBIN 12.9 g/dl (13.5-17.5); MEAN CORPUSCULAR HEMOGLOBIN 26.3 pg (27.0-33.0); MEAN CORPUSCULAR HGB CONC 31.7 g/dl (32.0-36.5); MEAN CORPUSCULAR VOLUME 82.9 fl (80.0-96.0); PLATELET COUNT, AUTOMATED 379 10^3/uL (150-450); RED BLOOD COUNT 4.91 10^6/uL (4.30-6.10); WHITE BLOOD COUNT 9.7 10^3/uL (4.0-10.0)
[2020-02-20 10:03] LABS: HEMOGLOBIN A1c 6.3 %
[2020-02-20 10:43] LABS: ALBUMIN 4.3 GM/DL (3.2-5.2); ALT/SGPT 14 U/L (12-78); BILIRUBIN,TOTAL 0.3 MG/DL (0.2-1.0); BLOOD UREA NITROGEN 29 MG/DL (7-18); CALCIUM LEVEL 10.1 MG/DL (8.5-10.1); CARBON DIOXIDE LEVEL 28 MEQ/L (21-32); CHLORIDE LEVEL 101 MEQ/L (98-107); CHOLESTEROL LEVEL 180 MG/DL (<200); CHOLESTEROL RISK RATIO 3.214 (<5); CREATININE FOR GFR 0.95 MG/DL (0.70-1.30); FREE T4 0.91 NG/DL (0.76-1.46); GLOMERULAR FILTRATION RATE > 60.0 (>56); GLUCOSE, FASTING 103 MG/DL (70-100); HDL CHOLESTEROL 56 MG/DL (>40); LDL CHOLESTEROL 108 MG/DL (<100); NON-HDL-C 124 MG/DL; POTASSIUM SERUM 4.1 MEQ/L (3.5-5.1); SODIUM LEVEL 138 MEQ/L (136-145); TOTAL 25(OH) VITAMIN D 49.7 NG/ML (30.0-100.0); TOTAL PROTEIN 7.7 GM/DL (6.4-8.2); TRIGLYCERIDES LEVEL 82 MG/DL (<150)
== END ==
LOC: M WUC 08:23
PROVIDERS: ATTEND Family Medicine
DX: E55.9 Vitamin D deficiency, unspecified (principal); G25.0 Essential tremor; R73.03 Prediabetes; E78.2 Mixed hyperlipidemia; I10 Essential (primary) hypertension; J45.998 Other asthma

== ENCOUNTER → 2020-08-26 | Outpatient (CLI) | payer OTHER, MEDICAID ==
[~2020-08-26] MED LIST changes: -ASPI81TA85 PO; +ASPI81TA86 PO; +CALC-212 PO; -CALC600T7 PO; +VITA-243 PO; -VITA500T PO
[2020-08-26 12:58] LABS: BASO % 0.3 % (0.0-1.0); EOS # 0.2 10^3/uL (0.0-0.5); HEMATOCRIT 39.5 % (42.0-52.0); HEMOGLOBIN 12.6 g/dl (13.5-17.5); LYMPH # 1.4 10^3/uL (1.5-5.0); LYMPH % 23.2 % (24.0-44.0); MEAN CORPUSCULAR HEMOGLOBIN 26.6 pg (27.0-33.0); MEAN CORPUSCULAR HGB CONC 31.9 g/dl (32.0-36.5); MEAN CORPUSCULAR VOLUME 83.3 fl (80.0-96.0); MONO # 0.8 10^3/uL (0.0-0.8); MONO % 12.9 % (0.0-5.0); NEUTROPHILS # 3.7 10^3/uL (1.5-8.5); NEUTROPHILS % 60.3 % (36.0-66.0); PLATELET COUNT, AUTOMATED 305 10^3/uL (150-450); RED BLOOD COUNT 4.74 10^6/uL (4.30-6.10); WHITE BLOOD COUNT 6.1 10^3/uL (4.0-10.0)
[2020-08-26 13:16] LABS: ERYTHROCYTE SEDIMENTATION RATE 12 mm/hr (0-20); HEMOGLOBIN A1c 5.8 %
[2020-08-26 15:40] LABS: BLOOD UREA NITROGEN 26 MG/DL (7-18); GLUCOSE, FASTING 90 MG/DL (70-100); POTASSIUM SERUM 3.7 MEQ/L (3.5-5.1); SODIUM LEVEL 140 MEQ/L (136-145)
[2020-08-26 15:41] LABS: ALT/SGPT 14 IU/L (0-32); BILIRUBIN,TOTAL 0.4 MG/DL (0.2-1.0); CALCIUM LEVEL 9.3 MG/DL (8.5-10.1); CARBON DIOXIDE LEVEL 30 mmol/L (20-29); CHLORIDE LEVEL 105 MEQ/L (98-107); RHEUMATOID FACTOR QUANT < 10.0 IU/ML (<15.0)
[2020-08-26 15:58] LABS: CREATININE FOR GFR 1.01 MG/DL (0.70-1.30); GLOMERULAR FILTRATION RATE > 60.0 (>56); TOTAL PROTEIN 6.9 GM/DL (6.4-8.2)
[2020-08-27 07:29] LABS: TOTAL PROTEIN 6.9 GM/DL (6.4-8.2)
[2020-08-27 11:35] LABS: ALBUMIN 4.29 GM/DL (3.29-5.55); ALBUMIN % 62.2 % (55.8-66.1); ALPHA-1-GLOBULIN % 4.3 % (2.9-4.9); ALPHA-2-GLOBULINS 0.75 GM/DL (0.42-0.99); ALPHA-2-GLOBULINS % 10.9 % (7.1-11.8); BETA-1-GLOBULINS 0.49 GM/DL (0.28-0.60); BETA-1-GLOBULINS % 7.1 % (4.7-7.2); BETA-2-GLOBULINS 0.33 GM/DL (0.19-0.55); BETA-2-GLOBULINS % 4.8 % (3.2-6.5); GAMMA GLOBULIN % 10.7 % (11.1-18.8); GAMMA GLOBULINS 0.74 GM/DL (0.65-1.58)
[2020-08-31 09:10] LABS: ANTINUCLEAR ANTIBODIES DIRECT Negative (Negative); VITAMIN E(ALPHA TOCOPHEROL) 8.3 mg/L (7.0-25.1); VITAMIN E(GAMMA TOCOPHEROL) 1.2 mg/L (0.5-5.5)
== END ==
LOC: M WUC 10:12
PROVIDERS: ATTEND Psychiatry & Neurology Neurology
DX: E11.21 Type 2 diabetes mellitus with diabetic nephropathy (principal); R20.0 Anesthesia of skin

== ENCOUNTER → 2020-09-23 | Outpatient (REF) | payer OTHER ==
[2020-09-23 17:17] LABS: HEMATOCRIT 45.4 % (42.0-52.0); HEMOGLOBIN 14.2 g/dl (13.5-17.5); MEAN CORPUSCULAR HEMOGLOBIN 26.6 pg (27.0-33.0); MEAN CORPUSCULAR HGB CONC 31.3 g/dl (32.0-36.5); MEAN CORPUSCULAR VOLUME 85.2 fl (80.0-96.0); PLATELET COUNT, AUTOMATED 353 10^3/uL (150-450); RED BLOOD COUNT 5.33 10^6/uL (4.30-6.10); WHITE BLOOD COUNT 7.9 10^3/uL (4.0-10.0)
[2020-09-23 17:46] LABS: ALBUMIN 4.4 GM/DL (3.2-5.2); ALT/SGPT 14 U/L (12-78); BILIRUBIN,TOTAL 0.4 MG/DL (0.2-1.0); BLOOD UREA NITROGEN 27 MG/DL (7-18); CALCIUM LEVEL 10.8 MG/DL (8.5-10.1); CARBON DIOXIDE LEVEL 31 MEQ/L (21-32); CHLORIDE LEVEL 102 MEQ/L (98-107); CHOLESTEROL LEVEL 181 MG/DL (<200); CHOLESTEROL RISK RATIO 3.351 (<5); CREATININE FOR GFR 1.04 MG/DL (0.70-1.30); FREE T4 1.16 NG/DL (0.76-1.46); GLOMERULAR FILTRATION RATE > 60.0 (>56); GLUCOSE, FASTING 87 MG/DL (70-100); HDL CHOLESTEROL 54 MG/DL (>40); LDL CHOLESTEROL 106 MG/DL (<100); NON-HDL-C 127 MG/DL; POTASSIUM SERUM 4.6 MEQ/L (3.5-5.1); SODIUM LEVEL 138 MEQ/L (136-145); TOTAL PROTEIN 7.6 GM/DL (6.4-8.2); TRIGLYCERIDES LEVEL 104 MG/DL (<150)
[2020-09-23 17:47] LABS: PROLACTIN 2.3 NG/ML (2.1-17.7); TOTAL 25(OH) VITAMIN D 47.7 NG/ML (30.0-100.0)
[2020-09-23 18:07] LABS: HEMOGLOBIN A1c 5.8 %
== END ==
LOC: M SFHCADAM 14:38
PROVIDERS: ATTEND Family Medicine
DX: J45.998 Other asthma (principal); I10 Essential (primary) hypertension; G25.0 Essential tremor; R73.03 Prediabetes; E78.2 Mixed hyperlipidemia; E55.9 Vitamin D deficiency, unspecified; N62 Hypertrophy of breast

== ENCOUNTER → 2020-10-14 | Outpatient (REF) | payer OTHER, MEDICAID | LOC: M SFHCPLAZ 16:51 | PROVIDERS: ATTEND Physician Assistant | DX: R31.9 Hematuria, unspecified (principal) ==

== ENCOUNTER 2020-11-03 10:27 | Emergency (ER) | payer MEDICAID, OTHER ==
[~2020-11-03] VITALS: Ht 170.2 cm; Wt 108.1 kg
--- NOTE | 2020-11-03 11:18 | REP ---
INDICATION: fall. COMPARISON: Comparison study January 20, 2011.. TECHNIQUE: Helical scanning is acquired. 5 mm axial images were reformatted. Coronal MPR images were generated. FINDINGS: Bone window settings demonstrate an intact bony calvarium. There is no evidence of skull fracture or incidental bony calvarial lesion. Mucous retention cysts are again noted in the maxillary sinuses bilaterally. The visualized paranasal sinuses appear otherwise clear. No intraorbital abnormality is seen. On soft tissue window setting images; the lateral, third, and fourth ventricles are normal in size and position. Love-white differentiation pattern is normal above and below the tentorium. There are is no evidence of intracranial hemorrhage. No mass, edema, infarction, or midline shift is seen. No extra-axial fluid collection is appreciated. IMPRESSION: Maxillary sinus mucous retention cysts again noted. Otherwise negative noncontrast head CT. No skull fracture or intracranial injury seen.. <Electronically signed by Christopher Klein > 11/03/20 [id number]
--- NOTE | 2020-11-03 11:24 | REP ---
INDICATION: fall. COMPARISON: Comparison CT imaging is from 20 January 2011.00. TECHNIQUE: Helical scanning is acquired and overlapping 2 mm high resolution axial images were generated and reviewed at bone and soft tissue window settings. Coronal and sagittal multiplanar re-formations images are generated. FINDINGS: There is no evidence of cervical spine element fracture. No skull base fracture is seen. Cervical vertebral body heights are preserved. Alignment is normal. Facet joints are normally aligned bilaterally at each cervical level on multiplanar re-formations images. There is no evidence of intraspinal or paraspinal hematoma. No extra vertebral abnormality is seen. There are degenerative spondylosis changes in the cervical spine with degenerative disc disease at C3-4 C4-5 and C7-T1. There are mild osteoarthritic facet hypertrophy changes in the mid cervical spine and a mild levoconvex curvature is noted. There is bilateral uncovertebral spurring with arthritis associated cyst formation at C3-4 and C4-5. There is left-sided neural foraminal narrowing at C3-4 and C4-5. IMPRESSION: Degenerative spondylosis changes as noted above. No traumatic abnormality.. <Electronically signed by Christopher Klein > 11/03/20 [id number]
[2020-11-03 12:30] VITALS: BP 172/97
== END 2020-11-03 12:35 | disposition home or self-care (01) ==
LOC: M ED 10:27
DX: S09.90XA Unspecified injury of head, initial encounter (principal); W01.198A Fall on same level from slipping, tripping and stumbling with subsequent striking against other object, initial encounter; Y92.9 Unspecified place or not applicable; Y93.9 Activity, unspecified; Y99.9 Unspecified external cause status; M47.812 Spondylosis without myelopathy or radiculopathy, cervical region; M47.813 Spondylosis without myelopathy or radiculopathy, cervicothoracic region; M48.02 Spinal stenosis, cervical region; J34.1 Cyst and mucocele of nose and nasal sinus; I10 Essential (primary) hypertension; J45.909 Unspecified asthma, uncomplicated; E03.9 Hypothyroidism, unspecified; G89.29 Other chronic pain; M54.9 Dorsalgia, unspecified; Z88.0 Allergy status to penicillin; Z88.8 Allergy status to other drugs, medicaments and biological substances; Z91.040 Latex allergy status; Z91.048 Other nonmedicinal substance allergy status; Z79.51 Long term (current) use of inhaled steroids; Z79.82 Long term (current) use of aspirin; Z79.899 Other long term (current) drug therapy

== ENCOUNTER → 2020-11-09 | Outpatient (REF) | payer OTHER ==
[2020-11-09 15:10] LABS: LUTEINIZING HORMONE 3.1 mIU/mL (1.5-9.3)
== END ==
LOC: M PLALAB 10:41
PROVIDERS: ATTEND Surgery
DX: N64.4 Mastodynia (principal)

== ENCOUNTER → 2020-11-12 | Outpatient (REF) | payer OTHER ==
[2020-11-12 18:23] LABS: APPEARANCE, URINE CLEAR (CLEAR); BACTERIA, URINE AUTO NEGATIVE (NEGATIVE); BILIRUBIN, URINE AUTO NEGATIVE (NEGATIVE); BLOOD, URINE BLOOD 1+ (NEGATIVE); COLOR, URINE YELLOW (YELLOW); GLUCOSE, URINE (UA) AUTO NEGATIVE (NEGATIVE); KETONE, URINE AUTO NEGATIVE (NEGATIVE); LEUKOCYTE ESTERASE, URINE AUTO NEGATIVE (NEGATIVE); MUCUS, URINE SMALL (NEGATIVE); NITRITE, URINE AUTO NEGATIVE (NEGATIVE); PROTEIN, URINE AUTO NEGATIVE (NEGATIVE); RBC, URINE AUTO 2 /HPF (0-3); SPECIFIC GRAVITY URINE AUTO 1.023 (1.002-1.035); SQUAMOUS EPITHELIAL CELL UR AU 0 /HPF (0-6); UROBILINOGEN, URINE AUTO 0.2 mg/dL (0.0-2.0); WBC, URINE AUTO 1 /HPF (0-3)
== END ==
LOC: M SMT 16:41
PROVIDERS: ATTEND Urology
DX: R31.0 Gross hematuria (principal)

== ENCOUNTER → 2020-11-13 | Outpatient (CLI) | payer OTHER ==
[2020-11-13 20:17] LABS: BLOOD UREA NITROGEN 28 MG/DL (7-18); CALCIUM LEVEL 9.7 MG/DL (8.5-10.1); CARBON DIOXIDE LEVEL 32 MEQ/L (21-32); CHLORIDE LEVEL 104 MEQ/L (98-107); CREATININE FOR GFR 1.07 MG/DL (0.70-1.30); GLOMERULAR FILTRATION RATE > 60.0 (>56); GLUCOSE, FASTING 119 MG/DL (70-100); POTASSIUM SERUM 3.8 MEQ/L (3.5-5.1); SODIUM LEVEL 143 MEQ/L (136-145)
== END ==
LOC: M WUC 15:28
PROVIDERS: ATTEND Urology
DX: R31.0 Gross hematuria (principal)

== ENCOUNTER → 2020-11-18 | Outpatient (CLI) | payer OTHER ==
--- NOTE | 2020-11-18 14:47 | REP ---
INDICATION: N63.4 BREAST PAIN/LEFT BREAST//CHEST WALL PAIN/SWELLING; R07.89 CHEST WALL PAIN/LEFT LATERAL BREAST/CHEST PAIN/SWELLI. COMPARISON: 12/02/2019. TECHNIQUE: MLO and CC views bilateral breasts performed with tomosynthesis. Left breast ultrasound performed in the region of swelling in the upper outer quadrant. FINDINGS: The breasts are predominantly fat. No mass or architectural distortion is seen bilaterally. No clustered microcalcifications are seen. A lymph node with a fatty hilum is noted in the right axilla. Left breast ultrasound in the region of swelling in the upper outer quadrant demonstrates no cystic or solid nodule. IMPRESSION: BIRADS/ACR category 1, negative. No mass or clustered microcalcifications. There is no mammographic or sonographic evidence of a mass at the site of the reported swelling in the upper-outer quadrant of the left breast. Clinical correlation and follow-up recommended. This mammogram was interpreted with the aid of an FDA-approved computer-aided detection system. The patient states she had a clinical breast exam in October 2020. The patient letter being requested is M2. RECOMMENDATION: Clinical correlation and follow-up. <Electronically signed by Kannan Love > 11/18/20 [id number]
== END ==
LOC: M WHC 13:04
PROVIDERS: ATTEND Surgery
DX: N64.4 Mastodynia (principal); R07.89 Other chest pain
CPT/HCPCS: 76642; 77066; G0279

== ENCOUNTER → 2020-12-01 | Outpatient (CLI) | payer OTHER ==
[~2020-12-01] MED LIST changes: +ISOVUE-370 76% 100ML VIAL As Ordered ONE
--- NOTE | 2020-12-01 14:20 | REP ---
INDICATION: GROSS HEMATURIA. COMPARISON: None TECHNIQUE: Axial precontrast, contrast-enhanced, and delayed images from the lung bases to the pubic symphysis using 100 cc Isovue 370 intravenous contrast material. Coronal and sagittal reformations obtained. This CT examination was performed using the following dose reduction techniques: Automated exposure control, adjustment of mA and/or kv according to the patient's size, and the use of iterative reconstruction technique. FINDINGS: The kidneys demonstrate simple benign bilateral peripelvic cysts and 3.8 cm simple Bosniak 1 upper pole left renal cyst. No nephrolithiasis, hydronephrosis, or renal mass lesion. Liver, spleen, pancreas, gallbladder, and bilateral adrenal glands are normal. A small paraesophageal gastric hiatal hernia is identified. Remainder of the enteric system including terminal ileum and appendix are normal. There is no evidence for bowel obstruction or acute inflammatory process. Pelvis demonstrates normal bladder and age-appropriate prostate/seminal vesicles. Evidence for prior right inguinal hernia repair noted. No ascites. No free air. No intraperitoneal or retroperitoneal adenopathy. Abdominal aorta and vasculature appear normal. Musculoskeletal structures are intact and without acute osseous abnormality. IMPRESSION: 1. Bilateral benign peripelvic and 3.8 cm simple Bosniak 1 left renal cyst without further urinary tract pathology noted. 2. Hiatal hernia. <Electronically signed by John Robledo > 12/01/20 [id number]
== END ==
LOC: M RAD 13:29
PROVIDERS: ATTEND Urology
DX: R31.0 Gross hematuria (principal); N28.1 Cyst of kidney, acquired; K44.9 Diaphragmatic hernia without obstruction or gangrene
CPT/HCPCS: 74178; Q9967

== ENCOUNTER → 2020-12-04 | Outpatient (CLI) | payer OTHER ==
[~2020-12-04] MED LIST changes: -ISOVUE-370 76% 100ML VIAL As Ordered ONE
[2020-12-04 16:50] LABS: FOLATE > 24.0 NG/ML; VITAMIN B12 LEVEL 463 PG/ML
== END ==
LOC: M WUC 14:42
PROVIDERS: ATTEND Psychiatry & Neurology Neurology
DX: E53.8 Deficiency of other specified B group vitamins (principal)

== ENCOUNTER → 2021-01-11 | Outpatient (CLI) | payer OTHER ==
[~2021-01-11] MED LIST changes: +HYDR-3490 PO; -HYDR25TAB PO; -LISI-538 PO; +LISI20TA33 PO
--- NOTE | 2021-01-20 00:59 | ECWPNPC ---
PATIENT NAME: WENCESLAO BUTTS : 1960 GENDER: MALE VISIT DATE: 01/11/2021 DISCHARGE DATE: 01/11/21936 VISIT LOCKED DATE TIME: PHYSICIAN: NIKITA SCOTT PHYSICIAN PAGER NO: ACTIVE RESOURCE: NIKITA SCOTT REASON FOR APPOINTMENT 1. CHEST WALL PAIN HISTORY OF PRESENT ILLNESS DEPRESSION SCREENING: PHQ-9 LITTLE INTEREST OR PLEASURE IN DOING THINGSSEVERAL DAYS FEELING DOWN, DEPRESSED, OR HOPELESSSEVERAL DAYS TROUBLE FALLING OR STAYING ASLEEP, OR SLEEPING TOO MUCHNOT AT ALL FEELING TIRED OR HAVING LITTLE ENERGYSEVERAL DAYS POOR APPETITE OR OVEREATING NOT AT ALL FEELING BAD ABOUT YOURSELF-OR THAT YOU ARE A FAILURE OR HAVE LET YOURSELF OR YOUR FAMILY DOWN SEVERAL DAYS TROUBLE CONCENTRATING ON THINGS, SUCH READING THE NEWSPAPER OR WATCHING TELEVISION SEVERAL DAYS MOVING OR SPEAKING SO SLOWLY THAT OTHER PEOPLE COULD HAVE NOTICED. OR THE OPPOSITE- BEING SO FIDGETY OR RESTLESS THAT YOU HAVE BEEN MOVING AROUND A LOT MORE THAN USUALSEVERAL DAYS THOUGHTS THAT YOU WOULD BE BETTER OFF , OR OF HURTING YOURSELF IN SOME WAY?NOT AT ALL TOTAL SCORE:6 INTERPRETATIONMILD DEPRESSION PHQ-2 (2015 EDITION) LITTLE INTEREST OR PLEASURE IN DOING THINGS?MORE THAN HALF THE DAYS FEELING DOWN, DEPRESSED, OR HOPELESS?MORE THAN HALF THE DAYS TOTAL SCORE4 GENERAL: HERE PER REFERRAL OF PLASTIC SURGERY FOR CHRONIC LEFT CHEST WALL PAIN. PAIN IS AGGRAVATED IN THIS REGION WITH USE OF ARMS. THIS HAS BEEN GOING ON SINCE INJURING HIS LEFT SHOULDER WITH SUBSEQUENT LEFT SHOULDER SURGERY A FEW YEARS AGO. RANGE OF JOINT MOTION OF THE LEFT ARM IS LIMITED. STATES THAT PRIMARY CARE HAS ORDERED CHEST MRI WHICH HE WILL BE HAVING DONE IN THE NEAR FUTURE. REPORTING SIGNIFICANT ACTIVITY INTOLERANCE DUE TO LEFT CHEST WALL PAIN. HAS HAD A FULL CARDIAC WORKUP. PAIN IS CONSTANT IN THIS REGION BUT AGGRAVATED WITH USE OF ARMS. PAIN IS AGGRAVATED WITH PALPATION OVER THE LEFT CHEST WALL. DENIES SUDDEN WEIGHT LOSS. DENIES BOWEL OR BLADDER INCONTINENCE.- - -. FALL RISK SCREENING: SCREENING :TWO OR MORE FALLS WITH INJURY IN THE PAST YEAR STATES HE HAS FREQUENT FALLS PAIN SCREENING: PATIENT HAS A COMPLAINT OF ACUTE OR CHRONIC PAIN :YES PAIN IS DECREASED BY:OTHERS,USE OF PAIN MEDICATIONS PUTTING PILLOW UNDER ARM, IBUPROFEN TAKES THE EDGE OFF PAIN IS INCREASED BY:ACTIVITIES USING LEFT ARM DURATION:CONTINOUS WHAT DOES YOUR PAIN FEEL LIKE:ACHING,CONTINOUS,SHARP,INTERMITTENT SHARP SOMETIMES INTENSITY OF PAIN (SCALE OF 1 TO 10):9 LOCATION OF PAIN:CHEST,LEFT SHOULDER NURSING NOTE: - - -. PAIN CENTER INTAKE QUESTIONS: DO YOU HAVE A HISTORY OF MRSA? :NO DO YOU TAKE A BLOOD THINNERS? :NO DO YOU HAVE ANY BLEEDING DISORDERS? :NO ANY NEW NUMBNESS OR WEAKNESS IN YOUR LEGS OR ARMS? :YES LEFT ARM NUMBNESS FROM SHOULDER TO LEFT HAND, INTO FINGERS NUMB AND TINGLY ANY PACEMAKER,DEFIBRILLATOR, OR DORSAL COLUMN STIMULATOR? :NO DO YOU HAVE ANY RASHES OR OPEN SORES? :NO ARE YOU ALLERGIC TO IV DYE? :NO ARE YOU DIABETIC? :NO STATES HE IS PRE DIABETIC ANY NEW PROBLEMS WITH YOUR MEDICATIONS? :NO HAVE YOU RECEIVED A VACCINE IN THE PAST 30 DAYS? :NO DO YOU PLAN TO RECEIVE A VACCINE IN THE NEXT 21 DAYS? :NO WOULD LIKE COVID VACCINE DO YOU NEED ANY PRESCRIPTION? :NO DO YOU TAKE ANY IMMUNOSUPPRESSIVE MEDICATIONS? :NO CURRENT MEDICATIONS TAKING ASPIRIN 81 MG TABLET 1 TABLET ORALLY TWICE A DAY TAKING ALYSA ALLERGY 60 MG TABLET 1 CAP ORALLY ONCE A DAY TAKING FLONASE 50 MCG/ACT SUSPENSION 1 PUFF IN EACH NOSTRIL NASALLY ONCE A DAY TAKING SALINE 0.9 % SOLUTION 2 SPRAYS NASALLY NASALLY QID TAKING LIDOCAINE 4 % CREAM APPLY TO SHOULDER EXTERNALLY 4 TIMES A DAY TAKING IBUPROFEN 600 MG TABLET 1 TABLETS ORALLY THREE TIMES A DAY TAKING MULTIVITAMINS OTC TABLET 1 TABLET ORALLY ONCE A DAY TAKING VITAMIN C 500 MG TABLET 1 TABLET ORALLY ONCE A DAY TAKING PHYSICAL THERAPY EVALUATE AND TREAT PHYSICAL THERAPY MECHANICAL EVAL & TX S46.912A, LEFT SHOULDER STRAIN 6 VISITS OVER 12 WEEKS TAKING MEDICAL COMPRESSION STOCKINGS _ MISCELLANEOUS 15-30 MM _ DIRECTED BOTH LEGS TAKING HYDROCHLOROTHIAZIDE 25 MG TABLET 1 TABLET ORALLY ONCE A DAY TAKING LISINOPRIL 20 MG TABLET 1 TABLET ORALLY ONCE A DAY TAKING ATORVASTATIN CALCIUM 20 MG TABLET 1 TABLET ORALLY ONCE A DAY TAKING GEMFIBROZIL 600 MG TABLET 1 TABLET ORALLY TWICE A DAY TAKING CALCIUM + D 600-200 MG-UNIT TABLET 1 TABLET ORALLY TWICE A DAY TAKING SYMBICORT 160-4.5 MCG/ACT AEROSOL 2 PUFFS INHALATION TWICE A DAY TAKING VENTOLIN HFA 108 (90 BASE) MCG/ACT AEROSOL SOLUTION 2 PUFFS NEEDED INHALATION FOUR TIMES DAILY NEEDED TAKING DRISDOL 05175 UNIT CAPSULE 1 CAPSULE ORALLY ONCE A WEEK NOT-TAKING GABAPENTIN 100 MG CAPSULE 1 CAPSULE ORALLY 3 TIMES A DAY NOT-TAKING DOXYCYCLINE HYCLATE 100 MG CAPSULE 1 CAPSULE ORALLY TWICE A DAY MEDICATION LIST REVIEWED AND RECONCILED WITH THE PATIENT PAST MEDICAL HISTORY HYPERTENSION ALLERGIC RHINITIS ASTHMA HYPERLIPIDEMIA IMPAIRED FASTING GLUCOSE/PREDIABETES VITAMIN D DEFICIENCY ESSENTIAL TREMOR, SAW NC NEURO 2018, TRIED PROPRANOLOL W/O BENEFIT GYNECOMASTIA LEFT>RT, PROB FROM GABAPENTIN (SEE 09/15) DC UNKNOWN DATE ALLERGIES LATEX: RASH - SIDE EFFECTS EGGSHELL POWDER: ? - SIDE EFFECTS FLOXIN OTIC: INCREASE HEARTRATE - SIDE EFFECTS PENICILLIN G SODIUM: RASH, SOB - SIDE EFFECTS ULTRAM: INCREASE HEARTRATE - SIDE EFFECTS NABUMETONE(RELAFEN) 500 MG: INCREASED BLOOD PRESSURE - SIDE EFFECTS LEVAQUIN: TENDON RUPTURE LEFT WRIST - SIDE EFFECTS PROPRANOLOL HCL: NO EFFECT ON TREMOR - LACK OF THERAPEUTIC EFFECT GABAPENTIN: GYNECOMASTIA - SIDE EFFECTS SURGICAL HISTORY VENOUS STRIPPING LEFT LEG (DR. WAY) RIGHT INQUINAL HERNIA REPAIR 2004 SEBACEOUS CYST REMOVED BACK OF NECK () 2008 EXCISION OF LEFT FLANK LIPOMA 2007 TONSILLECTOMY CHILDHOOD COLONOSCOPY (NL--HYPERPLASTIC POLYPS ONLY) 08/07 TOENAIL REMOVED (RIGHT FOOT) DR. WHITLOCK 05/12 SEPTOPLASTY 09/12 LEFT SHOULDER SURGERY 10/29/2019 CYSTOSCOPY 12/08/2020 SOCIAL HISTORY GENERAL: TOBACCO USE ARE YOU A:NONSMOKER LATEX QUESTIONNAIRE LATEX ALLERGY : HAVE YOU EVER DEVELOPED ANY TYPE OF REACTION AFTER HANDLING LATEX PRODUCTS SUCH RUBBER GLOVES, CONDOMS, DIAPHRAGMS, BALLOONS, SOCKS, OR UNDERWEAR?YES LATEX ALLERGY : HAVE YOU EVER DEVELOPED ANY TYPE OF REACTION DURING OR AFTER DENTAL APPOINTMENT, VAGINAL/RECTAL EXAMINATION, SURGICAL PROCEDURE, OR ANY OTHER EXPOSURE?NO - PLEASE INDICATE :OTHER (DOCUMENT IN NOTES) BANDAIDS DATE ASKED : 12/08/2020 LATEX RISK : HAVE YOU EVER HAD ANY DIFFICULTY BREATHING OR HIVES AFTER EATING OR HANDLING ANY FRUITS, OR VEGETABLES; SUCH KIWI, BANANAS, STONE FRUITS, OR CHESTNUTSNO LATEX RISK : DO YOU HAVE A PREVIOUS PERSONAL HISTORY OF MORE THAN NINE SURGERIES, SPINA BIFIDA, OR REPEATED CATHERIZATIONS? NO LATEX RISK : ARE YOU FREQUENTLY EXPOSED TO LATEX PRODUCTS IN YOUR OCCUPATION?NO ALCOHOL USE: NO. BMI CARE GOAL FOLLOW-UP ABOVE NORMAL BMI FOLLOW-UPGIVING ENCOURAGEMENT TO EXERCISE ALCOHOL SCREENING DID YOU HAVE A DRINK CONTAINING ALCOHOL IN THE PAST YEAR?NO POINTS0 INTERPRETATIONNEGATIVE RECREATIONAL DRUG USE DENIES. CAFFEINE NONE. SEXUAL HX HAD SEX IN THE LAST 12 MONTHS (VAGINAL, ORAL, OR ANAL)?NO HAVE YOU EVER HAD AN STD?NO HIV / HEP-C SCREENING HIV TEST OFFERED TO PATIENT:YES DATE OFFERED:12/02/2016 TEST ACCEPTED:NO HEP-C TEST OFFERED TO PATIENT:YES DATE OFFERED:12/02/2016 REASON:PATIENT DECLINED TEST ACCEPTED:NO REASON:PATIENT DECLINED BAPTISM [id number] NONE LANGUAGE LANGUAGES SPOKEN:[place] EDUCATION LEVEL OF EDUCATION:FINISHED HIGH SCHOOL LEARNING BARRIERS / SPECIAL NEEDS CHANGE FROM LAST VISIT?NO BARRIERS TO LEARNING?NO HEARING IMPAIRED?NO VISION IMPAIRED?YES COGNITIVELY IMPAIRED?NO :CORRECTIVE LENSES READINESS TO LEARN?YES LEARNING PREFERENCES?NO LEARNING CAPABILITIES PRESENT?YES EMOTIONAL BARRIERS?NO SPECIAL DEVICES?NO TELEPHONE COIN BOX COLLECTOR NEEDED?NO DOMESTIC VIOLENCE DO YOU FEEL SAFE IN YOUR ENVIRONMENT?YES OCCUPATION: [employer]. DIET: NO ADDED SALT, LOW FAT, LOW CHOLESTEROL. EXERCISE: WALKS, DAILY. MARITAL STATUS: SINGLE. OTHERS AT HOME: PARENTS, [place]. HOUSING: PARENTS HOME. HOSPITALIZATION/MAJOR DIAGNOSTIC PROCEDURE RELATED TO SURGERY REVIEW OF SYSTEMS CONSTITUTIONAL: ANY RECENT FEVER NO . CHILLS NO . WEIGHT CHANGE OF UNKNOWN REASONS NO . GASTROENTEROLOGY: NEW UNEXPLAINABLE CHANGES IN BOWEL CONTROL NO . CONSTIPATION NO . GENITOURINARY: ANY NEW CHANGE IN BLADDER CONTROL? NO . NEUROLOGY: NEW ONSET DIZZINESS OR NEUROLOGICAL CHANGES NOT MENTIONED NO . NEW NUMBNESS OR PAIN PATTERNS NOT MENTIONED AND PERTINENT TO TODAY'S VISIT NO . CARDIOLOGY: NEW CHEST PRESSURE NO . NEW CHEST PAIN NO . RESPIRATORY: UNEXPLAINABLE COUGH NO . NEW SHORTNESS OF BREATH NO . VITAL SIGNS WT 235.6 LBS, HT 68 IN, BMI 35.82 INDEX, BP 152/69 MM HG, HR 56 /MIN, RR 18 /MIN, TEMP 98.4 F, OXYGEN SAT % 98, SAFE IN ENV? (Y/N) YES, REVIEWED BY: Reno ERWIN RN. EXAMINATION GENERAL EXAMINATION: GENERALNO ACUTE DISTRESS, WELL NOURISHED AND HYDRATED. PSYCHAPPROPRIATE MOOD AND AFFECT . NECK:NO LYMPHADENOPATHY. LUNGS:CLEAR TO AUSCULTATION BILATERALLY, NO WHEEZES, RHONCHI, RALES. HEART:NO MURMURS, REGULAR RATE AND RHYTHM. MUSCULOSKELETAL:TRIGGER POINTS NOTED OVER LEFT THORACIC /MID REGION EXTENDING TO MID AXILLA ON LEFT SIDE. PAIN IS AGGRAVATED WITH PALPATION IN THIS AREA WELL RANGE OF JOINT MOTION OF LEFT ARM . ASSESSMENTS LEFT-SIDED CHEST WALL PAIN - R07.89 (PRIMARY) TREATMENT LEFT-SIDED CHEST WALL PAIN NOTES: PATIENT WILL BE HAVING MRI IMAGING OF LEFT CHEST WALL THIS WEEK ORDERED BY PRIMARY CARE PER PATIENT.PATIENT WILL F/U IN 6 WEEKS AT PAIN CLINIC TO ESTABLISH TREATMENT PLAN. OTHERS NOTES: PHQ2 AND 9 PERFORMED BY THIS EMERGENCY MANAGER. PATIENT STATES HE ALREADY SEES A PROVIDER AT [facility]. PROCEDURE CODES FA211 ESTABILISHED PATIENT [facility] CHARGE DISPOSITION & COMMUNICATION FOLLOW UP 6 WEEKS (REASON: LEFT CHEST WALL PAIN) ELECTRONICALLY SIGNED BY ASHIA GORDON ON 01/19/2021 AT 10:50 AM EST DISCLAIMER : THIS IS A VISIT SUMMARY EXTRACTED FROM THE [employer] CHART. IT IS NOT A COPY OF THE [employer] PROGRESS NOTE. DONY
== END ==
LOC: M PAIN 08:15
PROVIDERS: ATTEND Nurse Practitioner Family
DX: R07.89 Other chest pain (principal); G89.29 Other chronic pain; R73.03 Prediabetes; J45.909 Unspecified asthma, uncomplicated; E55.9 Vitamin D deficiency, unspecified; G25.0 Essential tremor; I25.2 Old myocardial infarction; Z88.0 Allergy status to penicillin; Z88.8 Allergy status to other drugs, medicaments and biological substances; Z91.012 Allergy to eggs; Z91.040 Latex allergy status; Z79.82 Long term (current) use of aspirin; Z79.899 Other long term (current) drug therapy

== ENCOUNTER → 2021-02-20 | Outpatient (CLI) | payer OTHER ==
--- NOTE | 2021-02-20 11:15 | REP ---
INDICATION: OTHER ASTHMA. COMPARISON: Comparison chest x-ray September 24, 2019. TECHNIQUE: Two views.. FINDINGS: The lungs are well inflated and clear. The pleural angles are sharp. Heart is mildly enlarged unchanged from the comparison study. Cardiothoracic ratio measures 55.3%. The thoracic aorta is somewhat tortuous. Pulmonary vasculature is not increased. There are degenerative changes in the thoracic spine. No acute bony abnormality is appreciated. IMPRESSION: Cardiomegaly. Otherwise no active disease.. <Electronically signed by Christopher Klein > 02/20/21 1111
== END ==
LOC: M RAD 10:46
PROVIDERS: ATTEND Family Medicine
DX: J45.998 Other asthma (principal); I51.7 Cardiomegaly

== ENCOUNTER → 2021-04-08 | Outpatient (CLI) | payer OTHER ==
--- NOTE | 2021-04-09 08:58 | REP ---
INDICATION: ABN RESULTS OF PFT COMPARISON: None TECHNIQUE: Axial noncontrast images from the thoracic inlet to the upper abdomen with coronal and sagittal reformations. Images obtained on inspiration and expiration. This CT examination was performed using the following dose reduction techniques: Automated exposure control, adjustment of mA and/or kv according to the patient's size, and use of iterative reconstruction technique. FINDINGS: High-resolution images evaluated on inspiration and expiration demonstrate relatively normal, symmetric aeration with minimal age-related interstitial changes primarily noted in the left perihilar and basilar regions. No acute consolidation, obvious suspicious nodule or mass lesion. No significant interstitial changes or fibrosis. Tracheobronchial tree is patent. No obvious air trapping on expiration views. No effusion. No pneumothorax. Mediastinum demonstrates relatively normal thoracic aorta, pulmonary vasculature, and heart/pericardium. There is a moderate hiatal hernia at the gastroesophageal junction. Limited upper abdomen demonstrates 4 cm left renal hypodensity likely representing cyst. IMPRESSION: 1. Lung morel are relatively clear with minimal age-related interstitial changes. No acute mediastinal or pleuroparenchymal process. No evidence for chronic interstitial disease. 2. Moderate hiatal hernia. 3. 4 cm left renal hypodensity likely cyst and similar to 12/01/[address] <Electronically signed by John Robledo > 04/09/21 0838
== END ==
LOC: M RAD 09:17
PROVIDERS: ATTEND Internal Medicine Pulmonary Disease
DX: R94.2 Abnormal results of pulmonary function studies (principal)

== ENCOUNTER → 2021-05-12 | Outpatient (REF) | payer OTHER ==
[2021-05-12 16:46] LABS: HEMATOCRIT 42.3 % (42.0-52.0); HEMOGLOBIN 13.4 g/dl (13.5-17.5); MEAN CORPUSCULAR HEMOGLOBIN 26.6 pg (27.0-33.0); MEAN CORPUSCULAR HGB CONC 31.7 g/dl (32.0-36.5); MEAN CORPUSCULAR VOLUME 84.1 fl (80.0-96.0); PLATELET COUNT, AUTOMATED 326 10^3/uL (150-450); RED BLOOD COUNT 5.03 10^6/uL (4.30-6.10); WHITE BLOOD COUNT 6.6 10^3/uL (4.0-10.0)
[2021-05-12 16:53] LABS: ALBUMIN 4.2 GM/DL (3.2-5.2); ALT/SGPT 13 U/L (12-78); BILIRUBIN,TOTAL 0.3 MG/DL (0.2-1.0); BLOOD UREA NITROGEN 20 MG/DL (7-18); CALCIUM LEVEL 9.6 MG/DL (8.8-10.2); CARBON DIOXIDE LEVEL 30 MEQ/L (21-32); CHLORIDE LEVEL 104 MEQ/L (98-107); CHOLESTEROL LEVEL 166 MG/DL (<200); CHOLESTEROL RISK RATIO 3.531 (<5); CREATININE FOR GFR 0.88 MG/DL (0.70-1.30); GLOMERULAR FILTRATION RATE > 60.0 (>49); GLUCOSE, FASTING 84 MG/DL (70-100); HDL CHOLESTEROL 47 MG/DL (>40); LDL CHOLESTEROL 86 MG/DL (<100); NON-HDL-C 119 MG/DL; POTASSIUM SERUM 4.1 MEQ/L (3.5-5.1); SODIUM LEVEL 138 MEQ/L (136-145); TOTAL PROTEIN 7.4 GM/DL (6.4-8.2); TRIGLYCERIDES LEVEL 165 MG/DL (<150)
[2021-05-12 17:42] LABS: HEMOGLOBIN A1c 5.9 %
== END ==
LOC: M SFHCADAM 14:26
PROVIDERS: ATTEND Family Medicine
DX: E78.2 Mixed hyperlipidemia (principal); I10 Essential (primary) hypertension; J45.998 Other asthma; R73.03 Prediabetes

== ENCOUNTER → 2021-07-29 | Outpatient (CLI) | payer MEDICARE ==
[~2021-07-29] MED LIST changes: -DOXY100C PO; +DOXY100C3 PO
--- NOTE | 2021-08-03 18:05 | SLEEPCENT ---
DATE: 07/29/2021 ORDERED BY: RANDALL Levine Nocturnal polysomnography was performed for evaluation of sleep physiology in this patient with a history of excessive somnolence and nonrestorative sleep. Eight hours and 12 minutes of data were reviewed. There were 371.5 minutes of sleep identified. Sleep latency was normal at 10.5 minutes. REM sleep was delayed at 201.5 minutes. Sleep architecture showed poor progression early in the study. There were three REM cycles noted. Overall sleep efficiency was 77.0%. The patient's electrocardiogram showed a sinus rhythm with an average heart rate of 60 beats per minute. Rate ranged 50-70. EEG showed mild coarsening of the background. No focal events were identified and there were normal waveforms for wake and sleep. There were 68 respiratory events identified of 10 seconds in duration or greater for an apnea-hypopnea index of 11. The events were obstructive, not exclusive to sleep stage though REM clustering was seen, not exclusive to sleep position though more frequent events were seen in the supine posture. Arousals from respiratory events occurred 2.6 times per hour when arousals from snoring were included. There was some minor limb activity but limb movement arousal index was only 0.6. Oxygen saturations fell below 90% with respiratory events. IMPRESSIONS: Obstructive sleep apnea syndrome (G47.33). Apnea-hypopnea index 11. RECOMMENDATION: The patient should be encouraged to return to [facility] for [facility]. In the interim, alcohol and sedative avoidance should be practiced and caution exercised during the operation of motor vehicles. cc: PARRIS POLLACK MD
== END ==
LOC: M SLEEP 20:00
PROVIDERS: ATTEND Physician Assistant
DX: R40.0 Somnolence (principal)

== ENCOUNTER → 2021-08-10 | Outpatient (CLI) | payer MEDICARE | LOC: M PLALAB 14:07 | PROVIDERS: ATTEND Family Medicine | DX: E55.9 Vitamin D deficiency, unspecified (principal); Z79.899 Other long term (current) drug therapy ==

== ENCOUNTER → 2021-08-17 | Outpatient (CLI) | payer MEDICARE ==
--- NOTE | 2021-08-17 13:24 | REP ---
INDICATION: CONTUSION. COMPARISON: None. TECHNIQUE: Four views FINDINGS: The joint spaces are symmetric and relatively well maintained. There is no evidence of acute fracture or destructive osseous lesion. IMPRESSION: Negative hand. <Electronically signed by Phong Galicia > 08/17/21 [id number]
--- NOTE | 2021-08-17 13:25 | REP ---
INDICATION: CONTUSION. COMPARISON: None. TECHNIQUE: Four views FINDINGS: There is no acute fracture or destructive osseous lesion. IMPRESSION: Within normal limits <Electronically signed by Phong Galicia > 08/17/21 [id number]
== END ==
LOC: M WUC 13:05
PROVIDERS: ATTEND Physician Assistant
DX: S60.211A Contusion of right wrist, initial encounter (principal); S60.221A Contusion of right hand, initial encounter; X58.XXXA Exposure to other specified factors, initial encounter; Y92.9 Unspecified place or not applicable

== ENCOUNTER → 2021-09-01 | Outpatient (CLI) | payer MEDICARE ==
--- NOTE | 2021-09-02 15:30 | SLEEPCENT ---
DATE: 09/01/2021 ORDERED BY: [place] Rachel Nocturnal polysomnography was performed for the titration of pressure therapy in this patient with obstructive sleep apnea syndrome, apnea-hypopnea index of 11. For testing, a ResMed AirFit F20 full-face mask of large size was used. There was 4 cm of water pressure applied to the circuit, and the lights were extinguished. There was 8 hours and 24 minutes of data reviewed. There was 417 minutes of sleep identified. Sleep latency was mildly prolonged at 19 minutes, REM latency further prolonged at 269.5 minutes. Sleep architecture improved with optimal pressure therapy, and there were three REM cycles appreciated. Overall sleep efficiency 83.7%. The electrocardiogram showed a sinus rhythm with an average heart rate of 65 beats per minute. EEG showed some alpha intrusion. No focal events were identified, and there were normal waveforms for wake and sleep. There was a persistence of respiratory events prompting an increase in CPAP pressure to the optimal pressure of 6. Limb activity persisted despite optimal pressure therapy. Limb movement arousal index on this occasion was 3.2. IMPRESSION: Obstructive sleep apnea syndrome (G47.33). RECOMMENDATION: Nightly use of pressure therapy, 6 cm of water.
== END ==
LOC: M SLEEP 20:00
PROVIDERS: ATTEND Physician Assistant
DX: G47.33 Obstructive sleep apnea (adult) (pediatric) (principal)

== ENCOUNTER → 2021-10-13 | Outpatient (REF) | payer MEDICARE, OTHER | LOC: M SFHCPLAZ 16:51 | PROVIDERS: ATTEND Physician Assistant | DX: R05.9 Cough, unspecified (principal) | CPT/HCPCS: 87426; G0463; U0003 ==

== ENCOUNTER → 2021-12-08 | Outpatient (REF) | payer MEDICARE, MEDICAID, OTHER ==
[2021-12-08 13:55] LABS: APPEARANCE, URINE CLEAR (CLEAR); BACTERIA, URINE AUTO NEGATIVE (NEGATIVE); BILIRUBIN, URINE AUTO NEGATIVE (NEGATIVE); BLOOD, URINE BLOOD NEGATIVE (NEGATIVE); COLOR, URINE YELLOW (YELLOW); GLUCOSE, URINE (UA) AUTO NEGATIVE (NEGATIVE); KETONE, URINE AUTO NEGATIVE (NEGATIVE); LEUKOCYTE ESTERASE, URINE AUTO NEGATIVE (NEGATIVE); MUCUS, URINE SMALL (NEGATIVE); NITRITE, URINE AUTO NEGATIVE (NEGATIVE); PROTEIN, URINE AUTO NEGATIVE (NEGATIVE); RBC, URINE AUTO 0 /HPF (0-3); SPECIFIC GRAVITY URINE AUTO 1.016 (1.002-1.035); SQUAMOUS EPITHELIAL CELL UR AU 0 /HPF (0-6); UROBILINOGEN, URINE AUTO 0.2 mg/dL (0.0-2.0); WBC, URINE AUTO 0 /HPF (0-3)
== END ==
LOC: M SMT 12:49
PROVIDERS: ATTEND Nurse Practitioner Women's Health
DX: N40.0 Benign prostatic hyperplasia without lower urinary tract symptoms (principal); Z12.5 Encounter for screening for malignant neoplasm of prostate
CPT/HCPCS: 36415; 81001; 87086; G0103

== ENCOUNTER → 2021-12-23 | Outpatient (CLI) | payer MEDICAID, MEDICARE, OTHER ==
[~2021-12-23] MED LIST changes: +ASPI81TA26 PO; +ERGO500029 PO; +LOPI600T PO; +VITMTA PO
== END ==
LOC: M LABSMTC 10:20
PROVIDERS: ATTEND Anesthesiology
DX: Z01.818 Encounter for other preprocedural examination (principal); Z11.52 Encounter for screening for COVID-19

== ENCOUNTER 2021-12-28 10:09 | Day surgery (SDC) | payer MEDICAID, MEDICARE, OTHER ==
[~2021-12-28] VITALS: Ht 170.2 cm; Wt 114.3 kg
[~2021-12-28 10:09] MED LIST changes: +NS 1,000 ML IV ONE
[2021-12-28] MEDS ORDERED: propofoL 200 MG/20 ML VIAL As Ordered ONE (11:27)
[2021-12-28] MEDS ORDERED: LIDOCAINE 2% 100MG/5ML SDV (FOR ANES.) As Ordered ONE (11:27)
[2021-12-28 13:03] VITALS: BP 118/67
== END 2021-12-28 13:07 | disposition home or self-care (01) ==
LOC: M OPP 10:09
PROVIDERS: ATTEND Internal Medicine Gastroenterology
DX: Z12.11 Encounter for screening for malignant neoplasm of colon (principal); K63.5 Polyp of colon; K57.30 Diverticulosis of large intestine without perforation or abscess without bleeding; K64.8 Other hemorrhoids; Z79.82 Long term (current) use of aspirin; Z79.899 Other long term (current) drug therapy; Z88.0 Allergy status to penicillin; Z88.5 Allergy status to narcotic agent; Z88.8 Allergy status to other drugs, medicaments and biological substances; Z91.040 Latex allergy status; Z91.048 Other nonmedicinal substance allergy status

== ENCOUNTER → 2022-01-06 | Outpatient (REF) | payer MEDICARE, MEDICAID ==
[~2022-01-06] MED LIST changes: -NS 1,000 ML IV ONE
== END ==
LOC: M SFHCPLAZ 16:53
PROVIDERS: ATTEND Physician Assistant
DX: R05.9 Cough, unspecified (principal)

== ENCOUNTER → 2022-01-26 | Outpatient (CLI) | payer MEDICARE, MEDICAID, OTHER | LOC: M ADAMS 09:00 | PROVIDERS: ATTEND Family Medicine | DX: M51.36 Other intervertebral disc degeneration, lumbar region (principal); M51.37 Other intervertebral disc degeneration, lumbosacral region; M54.32 Sciatica, left side ==

== ENCOUNTER → 2022-05-04 | Outpatient (CLI) | payer MEDICARE, MEDICAID, OTHER ==
[~2022-05-04] MED LIST changes: +ALBU2.5V10 INH; -ALBU83IN INH
== END ==
LOC: M SOG 15:25
PROVIDERS: ATTEND Orthopaedic Surgery
DX: M25.551 Pain in right hip (principal)

== ENCOUNTER → 2022-05-19 | Outpatient (CLI) | payer MEDICAID, MEDICARE, OTHER | LOC: M PLAIMG 15:24 | PROVIDERS: ATTEND Orthopaedic Surgery | DX: M47.816 Spondylosis without myelopathy or radiculopathy, lumbar region (principal) ==

== ENCOUNTER → 2022-07-25 | Outpatient (CLI) | payer MEDICARE, OTHER, MEDICAID | LOC: M WUC 13:17 | PROVIDERS: ATTEND Physician Assistant | DX: M25.572 Pain in left ankle and joints of left foot (principal) ==

== ENCOUNTER → 2022-09-02 | Outpatient (CLI) | payer MEDICARE, OTHER, MEDICAID ==
[2022-09-02 13:45] LABS: HEMATOCRIT 42.9 % (42.0-52.0); HEMOGLOBIN 13.6 g/dl (13.5-17.5); MEAN CORPUSCULAR HEMOGLOBIN 26.5 pg (27.0-33.0); MEAN CORPUSCULAR HGB CONC 31.7 g/dl (32.0-36.5); MEAN CORPUSCULAR VOLUME 83.6 fl (80.0-96.0); PLATELET COUNT, AUTOMATED 328 10^3/uL (150-450); RED BLOOD COUNT 5.13 10^6/uL (4.30-6.10); WHITE BLOOD COUNT 6.3 10^3/uL (4.0-10.0)
[2022-09-02 14:35] LABS: BLOOD UREA NITROGEN 28 MG/DL (7-18); CALCIUM LEVEL 10.4 MG/DL (8.8-10.2); CARBON DIOXIDE LEVEL 28 MEQ/L (21-32); CHLORIDE LEVEL 104 MEQ/L (98-107); GLOMERULAR FILTRATION RATE > 60.0 (>49); GLUCOSE, FASTING 93 MG/DL (70-100); NT-PRO BNP 21 PG/ML (<125); POTASSIUM SERUM 4.3 MEQ/L (3.5-5.1); SODIUM LEVEL 138 MEQ/L (136-145)
== END ==
LOC: M PLALAB 11:10
PROVIDERS: ATTEND Physician Assistant
DX: R06.09 Other forms of dyspnea (principal)

== ENCOUNTER → 2022-10-29 | Outpatient (CLI) | payer MEDICARE, OTHER, MEDICAID | LOC: M RAD 12:10 | PROVIDERS: ATTEND Student in an Organized Health Care Education/Training Program | DX: M79.674 Pain in right toe(s) (principal) ==

== ENCOUNTER → 2022-11-14 | Outpatient (CLI) | payer MEDICARE, OTHER, MEDICAID ==
[2022-11-14 12:54] LABS: HEMATOCRIT 42.4 % (42.0-52.0); HEMOGLOBIN 13.1 g/dl (13.5-17.5); MEAN CORPUSCULAR HEMOGLOBIN 26.1 pg (27.0-33.0); MEAN CORPUSCULAR HGB CONC 30.9 g/dl (32.0-36.5); MEAN CORPUSCULAR VOLUME 84.5 fl (80.0-96.0); PLATELET COUNT, AUTOMATED 356 10^3/uL (150-450); RED BLOOD COUNT 5.02 10^6/uL (4.30-6.10); WHITE BLOOD COUNT 5.8 10^3/uL (4.0-10.0)
[2022-11-14 13:00] LABS: HEMOGLOBIN A1c 5.8 % (4.0-6.0)
[2022-11-14 13:19] LABS: ALBUMIN 4.4 G/DL (3.2-5.2); ALKALINE PHOSPHATASE 94 U/L (46-116); ALT/SGPT 14 U/L (7.0-40); AST/SGOT 21 U/L (<34); BILIRUBIN,TOTAL 0.4 MG/DL (0.3-1.2); BLOOD UREA NITROGEN 30 MG/DL (9-23); CALCIUM LEVEL 10.3 MG/DL (8.3-10.6); CARBON DIOXIDE LEVEL 29 MMOL/L (20-31); CHLORIDE LEVEL 101 MMOL/L (98-107); CHOLESTEROL LEVEL 151 MG/DL (<200); CHOLESTEROL RISK RATIO 3.93 (<5); CREATININE FOR GFR 0.89 MG/DL (0.70-1.30); GLOMERULAR FILTRATION RATE > 60.0 (>49); GLUCOSE, FASTING 80 MG/DL (74-106); HDL CHOLESTEROL 38.4 MG/DL (>40); NON-HDL-C 113 MG/DL; POTASSIUM SERUM 4.5 MMOL/L (3.5-5.1); SODIUM LEVEL 141 MMOL/L (136-145); TOTAL PROTEIN 7.2 G/DL (5.7-8.2); TRIGLYCERIDES LEVEL 153 MG/DL (<150)
[2022-11-14 13:21] LABS: FREE T4 0.85 NG/DL (0.89-1.76)
== END ==
LOC: M WUC 10:40
PROVIDERS: ATTEND Physician Assistant
DX: Z12.5 Encounter for screening for malignant neoplasm of prostate (principal); I10 Essential (primary) hypertension; R73.03 Prediabetes; E78.2 Mixed hyperlipidemia; J45.998 Other asthma
CPT/HCPCS: 36415; 80053; 80061; 83036; 84439; 84443; 85027; G0103

== ENCOUNTER → 2022-12-15 | Outpatient (REF) | payer MEDICAID | LOC: M SFHCPLAZ 13:12 | PROVIDERS: ATTEND Family Medicine | DX: L57.0 Actinic keratosis (principal) ==

== ENCOUNTER → 2022-12-29 | Outpatient (CLI) | payer OTHER ==
[2022-12-29 18:12] LABS: BLOOD UREA NITROGEN 29 MG/DL (9-23); CREATININE FOR GFR 1.01 MG/DL (0.70-1.30); GLOMERULAR FILTRATION RATE > 60.0 (>49)
== END ==
LOC: M PLALAB 15:07
PROVIDERS: ATTEND Physician Assistant
DX: M25.512 Pain in left shoulder (principal); M19.012 Primary osteoarthritis, left shoulder

== ENCOUNTER → 2023-03-02 | Outpatient (CLI) | payer OTHER, MEDICARE, MEDICAID ==
[~2023-03-02] MED LIST changes: +GABA-1171; +LEXA1TAB
[2023-03-02 15:48] LABS: BLOOD UREA NITROGEN 23 MG/DL (9-23); CALCIUM LEVEL 9.3 MG/DL (8.3-10.6); CARBON DIOXIDE LEVEL 34 MMOL/L (20-31); CHLORIDE LEVEL 103 MMOL/L (98-107); CREATININE FOR GFR 0.91 MG/DL (0.70-1.30); GLOMERULAR FILTRATION RATE > 60.0 (>49); GLUCOSE, FASTING 95 MG/DL (74-106); POTASSIUM SERUM 4.3 MMOL/L (3.5-5.1); SODIUM LEVEL 142 MMOL/L (136-145)
== END ==
LOC: M WUC 09:33
PROVIDERS: ATTEND Physician Assistant
DX: R94.39 Abnormal result of other cardiovascular function study (principal)

== ENCOUNTER → 2023-04-03 | Outpatient (CLI) | payer OTHER ==
[~2023-04-03] MED LIST changes: +**SFHN** LIDOCAINE 1% MDV 20ML VIAL ONE; +ISOVUE-300 61% 100ML VIAL ONE; +PROHANCE 279.3MG/ML 5ML VIAL ONE
== END ==
LOC: M PLAIMG 13:12
PROVIDERS: ATTEND Physician Assistant
DX: S46.012A Strain of muscle(s) and tendon(s) of the rotator cuff of left shoulder, initial encounter (principal); M19.012 Primary osteoarthritis, left shoulder
CPT/HCPCS: 23350; 73223; 76000; A9576; Q9967

== ENCOUNTER → 2023-07-19 | Outpatient (CLI) | payer MEDICARE, MEDICAID ==
[~2023-07-19] MED LIST changes: -**SFHN** LIDOCAINE 1% MDV 20ML VIAL ONE; +E-Z-GAS II EFFERVESCENT PACKET (SODIUM BICARB./CITRIC ACID/SIMETHICONE) As Ordered ONE; +E-Z-HD 98% w/w 340GM SUSP BTL As Ordered ONE; +E-Z-PAQUE 96% w/w SUSP 176GM BTL As Ordered ONE; -ISOVUE-300 61% 100ML VIAL ONE; -PROHANCE 279.3MG/ML 5ML VIAL ONE
== END ==
LOC: M RAD 08:39
PROVIDERS: ATTEND Physician Assistant
DX: R10.13 Epigastric pain (principal); R13.19 Other dysphagia

== ENCOUNTER 2023-09-22 12:40 | Day surgery (SDC) | payer MEDICARE, MEDICAID ==
[~2023-09-22] VITALS: Ht 172.7 cm; Wt 121.6 kg
[~2023-09-22 12:40] MED LIST changes: -E-Z-GAS II EFFERVESCENT PACKET (SODIUM BICARB./CITRIC ACID/SIMETHICONE) As Ordered ONE; -E-Z-HD 98% w/w 340GM SUSP BTL As Ordered ONE; -E-Z-PAQUE 96% w/w SUSP 176GM BTL As Ordered ONE; +NS 1,000 ML IV ONE
[2023-09-22 14:52] VITALS: TEMP 96.8
[2023-09-22 15:02] VITALS: BP 163/87; O2SAT 97
[2023-09-22] MEDS ORDERED: LIDOCAINE 2% 100MG/5ML SDV (FOR ANES.) As Ordered ONE (15:05)
[2023-09-22] MEDS ORDERED: propofoL 200 MG/20 ML VIAL As Ordered ONE (15:05)
[2023-09-22] MEDS ORDERED: fentaNYL 100 MCG/2 ML INJECTION As Ordered ONE (15:05)
== END 2023-09-22 15:17 | disposition home or self-care (01) ==
LOC: M OPP 12:40
PROVIDERS: ATTEND Internal Medicine Gastroenterology
DX: K22.89 Other specified disease of esophagus (principal); K44.9 Diaphragmatic hernia without obstruction or gangrene; K21.9 Gastro-esophageal reflux disease without esophagitis; I10 Essential (primary) hypertension; J45.909 Unspecified asthma, uncomplicated; G47.30 Sleep apnea, unspecified; E78.00 Pure hypercholesterolemia, unspecified; Z79.899 Other long term (current) drug therapy; Z79.82 Long term (current) use of aspirin; Z88.8 Allergy status to other drugs, medicaments and biological substances; Z88.0 Allergy status to penicillin
CPT/HCPCS: 43239; 43249; 88305; J3010

== ENCOUNTER → 2023-11-08 | Outpatient (CLI) | payer MEDICARE, MEDICAID ==
[~2023-11-08] MED LIST changes: -NS 1,000 ML IV ONE
[2023-11-08 13:37] LABS: HEMATOCRIT 43.4 % (42.0-52.0); HEMOGLOBIN 13.9 g/dl (13.5-17.5); MEAN CORPUSCULAR VOLUME 84.3 fl (80.0-96.0); PLATELET COUNT, AUTOMATED 341 10^3/uL (150-450); RED BLOOD COUNT 5.15 10^6/uL (4.30-6.10); WHITE BLOOD COUNT 5.5 10^3/uL (4.0-10.0)
[2023-11-08 13:51] LABS: HEMOGLOBIN A1c 6.1 % (4.0-6.0)
[2023-11-08 14:04] LABS: ALBUMIN 4.1 G/DL (3.2-5.2); ALKALINE PHOSPHATASE 97 U/L (46-116); ALT/SGPT 13 U/L (7.0-40); AST/SGOT 20 U/L (<34); BILIRUBIN,TOTAL 0.3 MG/DL (0.3-1.2); BLOOD UREA NITROGEN 25 MG/DL (9-23); CALCIUM LEVEL 9.5 MG/DL (8.3-10.6); CARBON DIOXIDE LEVEL 30 MMOL/L (20-31); CHLORIDE LEVEL 102 MMOL/L (98-107); CHOLESTEROL LEVEL 161 MG/DL (<200); CHOLESTEROL RISK RATIO 3.54 (<5); CREATININE FOR GFR 0.82 MG/DL (0.70-1.30); GLOMERULAR FILTRATION RATE > 60.0 (>49); GLUCOSE, FASTING 99 MG/DL (74-106); HDL CHOLESTEROL 45.4 MG/DL (>40); LDL CHOLESTEROL 79.2 MG/DL (<100); NON-HDL-C 115.6 MG/DL; POTASSIUM SERUM 4.1 MMOL/L (3.5-5.1); SODIUM LEVEL 140 MMOL/L (136-145); TOTAL PROTEIN 6.8 G/DL (5.7-8.2); TRIGLYCERIDES LEVEL 182 MG/DL (<150)
== END ==
LOC: M WUC 09:27
PROVIDERS: ATTEND Family Medicine
DX: I10 Essential (primary) hypertension (principal); E78.2 Mixed hyperlipidemia; R73.03 Prediabetes; G47.33 Obstructive sleep apnea (adult) (pediatric)

== ENCOUNTER 2023-11-21 10:40 | Emergency (ER) | payer MEDICARE, MEDICAID ==
[~2023-11-21] VITALS: Ht 170.2 cm; Wt 124.0 kg
[2023-11-21 12:42] VITALS: BP 169/79; TEMP 96.8; O2SAT 95
== END 2023-11-21 13:25 | disposition home or self-care (01) ==
LOC: M ED 10:40
DX: S93.491A Sprain of other ligament of right ankle, initial encounter (principal); W18.42XA Slipping, tripping and stumbling without falling due to stepping into hole or opening, initial encounter; M54.50 Low back pain, unspecified; E78.5 Hyperlipidemia, unspecified; J45.909 Unspecified asthma, uncomplicated; G40.909 Epilepsy, unspecified, not intractable, without status epilepticus; Z88.0 Allergy status to penicillin; Z88.1 Allergy status to other antibiotic agents; Z88.5 Allergy status to narcotic agent; Z91.040 Latex allergy status; Z79.52 Long term (current) use of systemic steroids; Z79.02 Long term (current) use of antithrombotics/antiplatelets; Z79.82 Long term (current) use of aspirin; Z79.811 Long term (current) use of aromatase inhibitors; Z79.899 Other long term (current) drug therapy; Y92.009 Unspecified place in unspecified non-institutional (private) residence as the place of occurrence of the external cause; Y93.9 Activity, unspecified; Y99.9 Unspecified external cause status

== ENCOUNTER → 2024-01-08 | Outpatient (CLI) | payer MEDICARE, OTHER ==
[2024-01-08 16:58] LABS: PSA SCREENING 0.24 NG/ML (< 4.00)
[2024-01-08 17:00] LABS: BLOOD UREA NITROGEN 27 MG/DL (9-23); CALCIUM LEVEL 9.8 MG/DL (8.3-10.6); CARBON DIOXIDE LEVEL 31 MMOL/L (20-31); CHLORIDE LEVEL 105 MMOL/L (98-107); GLOMERULAR FILTRATION RATE > 60.0 (>49); GLUCOSE, FASTING 76 MG/DL (74-106); POTASSIUM SERUM 4.2 MMOL/L (3.5-5.1); SODIUM LEVEL 142 MMOL/L (136-145)
[2024-01-08 17:02] LABS: TOTAL 25(OH) VITAMIN D 43.9 NG/ML (20.0-100.0)
[2024-01-08 17:03] LABS: FREE T4 0.88 NG/DL (0.89-1.76)
== END ==
LOC: M PLALAB 13:52
PROVIDERS: ATTEND Family Medicine
DX: E78.2 Mixed hyperlipidemia (principal); G25.0 Essential tremor; E55.9 Vitamin D deficiency, unspecified; Z12.5 Encounter for screening for malignant neoplasm of prostate; I10 Essential (primary) hypertension
CPT/HCPCS: 36415; 80048; 82306; 84439; 84443; G0103

== ENCOUNTER → 2024-04-02 | Outpatient (REF) | payer MEDICARE, MEDICAID ==
[2024-04-02 17:18] LABS: HEMATOCRIT 42.8 % (42.0-52.0); HEMOGLOBIN 13.9 g/dl (13.5-17.5); MEAN CORPUSCULAR HGB CONC 32.5 g/dl (32.0-36.5); MEAN CORPUSCULAR VOLUME 83.3 fl (80.0-96.0); PLATELET COUNT, AUTOMATED 314 10^3/uL (150-450); RED BLOOD COUNT 5.14 10^6/uL (4.30-6.10); WHITE BLOOD COUNT 7.1 10^3/uL (4.0-10.0)
[2024-04-02 17:22] LABS: ALBUMIN 4.1 G/DL (3.2-5.2); ALKALINE PHOSPHATASE 94 U/L (46-116); ALT/SGPT 19 U/L (7.0-40); AST/SGOT 28 U/L (<34); BILIRUBIN,TOTAL 0.5 MG/DL (0.3-1.2); BLOOD UREA NITROGEN 18 MG/DL (9-23); CALCIUM LEVEL 9.2 MG/DL (8.3-10.6); CARBON DIOXIDE LEVEL 30 MMOL/L (20-31); CHLORIDE LEVEL 102 MMOL/L (98-107); GLOMERULAR FILTRATION RATE > 60.0 (>49); GLUCOSE, FASTING 98 MG/DL (74-106); POTASSIUM SERUM 3.7 MMOL/L (3.5-5.1); SODIUM LEVEL 139 MMOL/L (136-145); TOTAL PROTEIN 6.9 G/DL (5.7-8.2)
[2024-04-02 17:23] LABS: APPEARANCE, URINE HAZY (CLEAR); BACTERIA, URINE AUTO NEGATIVE (NEGATIVE); BILIRUBIN, URINE AUTO NEGATIVE (NEGATIVE); BLOOD, URINE BLOOD NEGATIVE (NEGATIVE); COLOR, URINE YELLOW (YELLOW); GLUCOSE, URINE (UA) AUTO NEGATIVE (NEGATIVE); KETONE, URINE AUTO NEGATIVE (NEGATIVE); LEUKOCYTE ESTERASE, URINE AUTO NEGATIVE (NEGATIVE); NITRITE, URINE AUTO NEGATIVE (NEGATIVE); PROTEIN, URINE AUTO NEGATIVE (NEGATIVE); RBC, URINE AUTO 0 /HPF (0-3); SPECIFIC GRAVITY URINE AUTO 1.018 (1.002-1.035); SQUAMOUS EPITHELIAL CELL UR AU 0 /HPF (0-6); UROBILINOGEN, URINE AUTO 0.2 mg/dL (0.0-2.0); WBC, URINE AUTO 1 /HPF (0-3)
[2024-04-02 17:25] LABS: FREE T4 0.94 NG/DL (0.89-1.76); THYROID STIMULATING HORMONE 3.043 uIU/ML (0.55-4.78)
[2024-04-02 18:32] LABS: INR 1.06; PROTHROMBIN TIME 13.5 SECONDS (12.5-14.5)
== END ==
LOC: M SFHCADAM 10:55
PROVIDERS: ATTEND Family Medicine
DX: Z01.818 Encounter for other preprocedural examination (principal); E78.2 Mixed hyperlipidemia; G25.0 Essential tremor; Z79.899 Other long term (current) drug therapy; Z79.01 Long term (current) use of anticoagulants; Z79.82 Long term (current) use of aspirin; Z79.51 Long term (current) use of inhaled steroids; Z91.040 Latex allergy status; Z91.012 Allergy to eggs; Z88.0 Allergy status to penicillin; Z88.1 Allergy status to other antibiotic agents; Z88.6 Allergy status to analgesic agent; Z88.8 Allergy status to other drugs, medicaments and biological substances; Z91.048 Other nonmedicinal substance allergy status

== ENCOUNTER → 2024-04-03 | Outpatient (REF) | payer MEDICARE, MEDICAID ==
[2024-04-03 17:32] LABS: INR 1.03; PARTIAL THROMBOPLASTIN TIME 32.5 SECONDS (24.8-34.2); PROTHROMBIN TIME 13.2 SECONDS (12.5-14.5)
== END ==
LOC: M LABDRWAD 16:44
PROVIDERS: ATTEND Family Medicine
DX: Z01.818 Encounter for other preprocedural examination (principal); Z79.01 Long term (current) use of anticoagulants

== ENCOUNTER 2024-09-05 07:43 | Day surgery (SDC) | payer MEDICARE, MEDICAID ==
[~2024-09-05] VITALS: Ht 172.7 cm; Wt 123.8 kg
[~2024-09-05 07:43] MED LIST changes: +ALBU8.5H INH; +ATOR40TA75 PO; +BUSP10TA79 PO; +FLUT1INH2 INH; +FLUTISP; -GABA-1171; -LEXA1TAB; +LEXA1TAB PO; +MONT10TA97 PO; +NS 250 ML IV ONE; +OMEP-173 PO; +THERTAB52 PO
[2024-09-05 09:53] VITALS: TEMP 97.4
[2024-09-05 10:17] VITALS: BP 157/82; O2SAT 98
== END 2024-09-05 10:19 | disposition home or self-care (01) ==
LOC: M OPP 07:43
PROVIDERS: ATTEND Internal Medicine Gastroenterology
DX: Z12.11 Encounter for screening for malignant neoplasm of colon (principal); K63.5 Polyp of colon; K64.8 Other hemorrhoids; K57.30 Diverticulosis of large intestine without perforation or abscess without bleeding; K62.89 Other specified diseases of anus and rectum; Z86.0100 Personal history of colon polyps, unspecified; K21.9 Gastro-esophageal reflux disease without esophagitis; Z90.49 Acquired absence of other specified parts of digestive tract; Z87.19 Personal history of other diseases of the digestive system; I10 Essential (primary) hypertension; J44.89 Other specified chronic obstructive pulmonary disease; E78.00 Pure hypercholesterolemia, unspecified; Z79.899 Other long term (current) drug therapy; Z79.51 Long term (current) use of inhaled steroids; Z90.89 Acquired absence of other organs; Z88.8 Allergy status to other drugs, medicaments and biological substances; Z88.0 Allergy status to penicillin; Z88.5 Allergy status to narcotic agent; Z91.048 Other nonmedicinal substance allergy status; G47.30 Sleep apnea, unspecified; F32.A Depression, unspecified; F41.9 Anxiety disorder, unspecified

== ENCOUNTER → 2024-09-24 | Outpatient (REF) | payer MEDICARE, MEDICAID ==
[~2024-09-24] MED LIST changes: -NS 250 ML IV ONE
[2024-09-24 13:45] LABS: HEMATOCRIT 40.4 % (42.0-52.0); HEMOGLOBIN 12.9 g/dl (13.5-17.5); MEAN CORPUSCULAR HEMOGLOBIN 26.4 pg (27.0-33.0); MEAN CORPUSCULAR HGB CONC 31.9 g/dl (32.0-36.5); MEAN CORPUSCULAR VOLUME 82.6 fl (80.0-96.0); PLATELET COUNT, AUTOMATED 387 10^3/uL (150-450); RED BLOOD COUNT 4.89 10^6/uL (4.30-6.10); WHITE BLOOD COUNT 6.8 10^3/uL (4.0-10.0)
[2024-09-24 14:14] LABS: HEMOGLOBIN A1c 6.3 % (4.0-6.0)
[2024-09-24 14:18] LABS: ALBUMIN 3.7 G/DL (3.2-5.2); ALKALINE PHOSPHATASE 101 U/L (40-129); ALT/SGPT 14 U/L (7.0-40); AST/SGOT 13 U/L (<34); BILIRUBIN,TOTAL 0.3 MG/DL (0.3-1.2); BLOOD UREA NITROGEN 25 MG/DL (9-23); CALCIUM LEVEL 9.8 MG/DL (8.3-10.6); CARBON DIOXIDE LEVEL 32 MMOL/L (20-31); CHLORIDE LEVEL 103 MMOL/L (98-107); CHOLESTEROL LEVEL 134 MG/DL (<200); CREATININE FOR GFR 0.87 MG/DL (0.70-1.30); GLOMERULAR FILTRATION RATE > 60.0 (>49); GLUCOSE, FASTING 96 MG/DL (74-106); HDL CHOLESTEROL 34.3 MG/DL (>40); LDL CHOLESTEROL 61.3 MG/DL (<100); NON-HDL-C 99.7 MG/DL; POTASSIUM SERUM 4.1 MMOL/L (3.5-5.1); SODIUM LEVEL 140 MMOL/L (136-145); TOTAL PROTEIN 6.9 G/DL (5.7-8.2); TRIGLYCERIDES LEVEL 192 MG/DL (<150)
[2024-09-24 14:19] LABS: FREE T4 0.91 NG/DL (0.89-1.76)
[2024-09-24 14:20] LABS: THYROID STIMULATING HORMONE 1.664 uIU/ML (0.55-4.78)
== END ==
LOC: M SFHCADAM 11:02
PROVIDERS: ATTEND Family Medicine
DX: B35.2 Tinea manuum (principal); F44.5 Conversion disorder with seizures or convulsions; R73.03 Prediabetes; G25.0 Essential tremor; E78.2 Mixed hyperlipidemia

== ENCOUNTER → 2025-02-28 | Outpatient (REF) | payer MEDICARE, MEDICAID ==
[2025-02-28 17:34] LABS: HEMATOCRIT 43.9 % (42.0-52.0); HEMOGLOBIN 13.9 g/dl (13.5-17.5); MEAN CORPUSCULAR HEMOGLOBIN 26.5 pg (27.0-33.0); MEAN CORPUSCULAR HGB CONC 31.7 g/dl (32.0-36.5); MEAN CORPUSCULAR VOLUME 83.8 fl (80.0-96.0); PLATELET COUNT, AUTOMATED 362 10^3/uL (150-450); RED BLOOD COUNT 5.24 10^6/uL (4.30-6.10); WHITE BLOOD COUNT 6.2 10^3/uL (4.0-10.0)
[2025-02-28 17:51] LABS: ALBUMIN 4.4 G/DL (3.2-5.2); ALKALINE PHOSPHATASE 107 U/L (40-129); ALT/SGPT 18 U/L (7.0-40); AST/SGOT 22 U/L (<34); BILIRUBIN,TOTAL 0.4 MG/DL (0.3-1.2); BLOOD UREA NITROGEN 26 MG/DL (9-23); CALCIUM LEVEL 9.4 MG/DL (8.3-10.6); CARBON DIOXIDE LEVEL 31 MMOL/L (20-31); CHLORIDE LEVEL 101 MMOL/L (98-107); CHOLESTEROL LEVEL 136 MG/DL (<200); CHOLESTEROL RISK RATIO 3.26 (<5); CREATININE FOR GFR 0.97 MG/DL (0.70-1.30); FREE T4 0.99 NG/DL (0.89-1.76); GLOMERULAR FILTRATION RATE > 60.0 (>49); GLUCOSE, FASTING 85 MG/DL (74-106); HDL CHOLESTEROL 41.7 MG/DL (>40); LDL CHOLESTEROL 66.5 MG/DL (<100); NON-HDL-C 94.3 MG/DL; POTASSIUM SERUM 4.1 MMOL/L (3.5-5.1); SODIUM LEVEL 140 MMOL/L (136-145); TOTAL PROTEIN 7.5 G/DL (5.7-8.2); TRIGLYCERIDES LEVEL 139 MG/DL (<150)
[2025-02-28 17:52] LABS: THYROID STIMULATING HORMONE 2.258 uIU/ML (0.55-4.78)
[2025-02-28 18:20] LABS: HEMOGLOBIN A1c 6.2 % (4.0-6.0)
== END ==
LOC: M SFHCADAM 12:01
PROVIDERS: ATTEND Family Medicine
DX: B35.2 Tinea manuum (principal); I10 Essential (primary) hypertension; R73.03 Prediabetes; G25.0 Essential tremor; E78.2 Mixed hyperlipidemia

== ENCOUNTER → 2025-04-11 | Outpatient (CLI) | payer MEDICARE, MEDICAID | LOC: M WUC 10:05 | PROVIDERS: ATTEND Internal Medicine Pulmonary Disease | DX: G47.33 Obstructive sleep apnea (adult) (pediatric) (principal) ==

== ENCOUNTER → 2025-08-06 | Outpatient (REF) | payer MEDICARE, MEDICAID ==
[~2025-08-06] MED LIST changes: -PRAV40TA2 PO; +PRAV40TA85 PO
[2025-08-06 19:20] LABS: ALT/SGPT 14.0 U/L (7.0-40); AST/SGOT 24.0 U/L (<34); CALCIUM LEVEL 9.9 MG/DL (8.3-10.6); CARBON DIOXIDE LEVEL 29.0 MMOL/L (20-31); CHLORIDE LEVEL 100.0 MMOL/L (98-107); CHOLESTEROL LEVEL 173.0 MG/DL (<200); CHOLESTEROL RISK RATIO 3.76 (<5); CREATININE FOR GFR 0.97 MG/DL (0.70-1.30); GLOMERULAR FILTRATION RATE 87.2 (>49); LDL CHOLESTEROL 88.6 MG/DL (<100); NON-HDL-C 127.0 MG/DL; POTASSIUM SERUM 4.6 MMOL/L (3.5-5.1); SODIUM LEVEL 143.0 MMOL/L (136-145); TRIGLYCERIDES LEVEL 192.0 MG/DL (<150)
[2025-08-06 19:22] LABS: FREE T4 1.03 NG/DL (0.89-1.76)
[2025-08-06 19:30] LABS: PLATELET COUNT, AUTOMATED 326 10^3/uL (150-450)
[2025-08-06 19:47] LABS: ESTIMATED AVERAGE GLUCOSE 140.0 MG/DL (60-110)
== END ==
LOC: M SFHCADAM 11:56
PROVIDERS: ATTEND Family Medicine
DX: R60.0 Localized edema (principal); R73.03 Prediabetes; G25.0 Essential tremor; E78.2 Mixed hyperlipidemia; F44.5 Conversion disorder with seizures or convulsions; Z79.899 Other long term (current) drug therapy; Z79.82 Long term (current) use of aspirin

== ENCOUNTER → 2025-08-06 | Outpatient (CLI) | payer MEDICARE, MEDICAID | LOC: M ADAMS 12:50 | PROVIDERS: ATTEND Family Medicine | DX: S93.601A Unspecified sprain of right foot, initial encounter (principal); S93.401A Sprain of unspecified ligament of right ankle, initial encounter; X58.XXXA Exposure to other specified factors, initial encounter; Y92.9 Unspecified place or not applicable; Y93.9 Activity, unspecified; Y99.9 Unspecified external cause status ==